=== PATIENT | male | born 1950 | race Caucasian/White ===

== ENCOUNTER 2016-11-10 12:26 | Inpatient (IN) | payer OTHER ==
[~2016-11-10] VITALS: Ht 175.3 cm; Wt 124.3 kg
--- NOTE | ~2016-11-10 | EKG ---
[address] [address] ELECTROCARDIOGRAM REPORT Name: KATIELOY Room #: 218-P ADM IN M.R.#: [id number] Admission: 11/10/16 Attend Phys: Arianna Dela Cruz MD Discharge: Date of : 48 Report #: [id number] THIS REPORT FOR: //name// [facility] ED Test Date: 2016-11-10 Test Time: 12:44:04 Pat Name: ELOY PARIKH Department: Room: 218 Gender: M Rn Plasma Center: JOSE ANTONIO : 1950 Requested By: Richard Charles Order Number: [id number] MD: Sergio Nevarez Measurements Intervals [place] Rate: 74 P: ID: QRS: 55 QRSD: 105 T: 26 QT: 354 QTc: 393 Interpretive Statements Atrial fibrillation Anteroseptal infarct, old No previous ECG available for comparison Electronically Signed On 11-11-2016 9:22:12 MATURITY CHECKER by Sergio Nevarez [email or web address] <ELECTRONICALLY SIGNED> By: Sergio Nevarez MD, [facility] 11/11/16 0922 1244 1244 Sergio Nevarez MD, FACC /EPI
--- NOTE | ~2016-11-10 | D ---
[facility] [place] [place] [address] DISCHARGE SUMMARY Name: ELOY PARIKH J Room #: 218-P [facility] IN ..#: [id number] Admission: 11/10/16 Attend Phys: Arianna Dela Cruz MD Discharge: 11/11/16 Date of : 48 Report #: [id number] THIS REPORT FOR: //name// CC: Arianna Dutta DATE OF SERVICE: 11/11/2016 AMA SUMMARY DISCHARGE DIAGNOSES: 1. Acute hypoxic respiratory failure. 2. Asthma exacerbation. 3. Acute on chronic diastolic congestive heart failure. 4. Noncompliance. 5. Type 2 diabetes. 6. Morbid obesity. 7. Hypertension. 8. Dyslipidemia. 9. Atrial fibrillation. 10. Obstructive sleep apnea. 11. Chronic kidney disease. CONSULTS: None. PROCEDURES: None. HOSPITAL COURSE: The patient is a 66-year-old male with a history of coronary artery disease, prior PCI, diastolic CHF, asthma, obstructive sleep apnea with nocturnal CPAP, presented to the ER secondary to shortness of breath. Please see details of admission dictated by myself on November 10. The patient was evaluated in the ER with a chest x-ray that showed marked cardiomegaly and pulmonary vascularities of upper limits of normal. EKG showed atrial fib with a rate of 74. His white count was 6. His influenza was negative. His INR was 3.1. His O2 sat was 92% on 4 liters. The patient was felt to have asthma exacerbation and diastolic CHF. His BNP was greater than 900. He was admitted and started on aggressive pulmonary toiletry, O2 support, DuoNebs, IV steroids, empiric antibiotics and IV Lasix. On the second day of hospital stay, the patient was still very dyspneic on exertion and was adamant about going home. He did not give us specifics as to why he wanted to go home but at that time he was still requiring inpatient hospital stay. He signed out against medical advice. I did discuss with him worsening of his respiratory status, potential severe morbidity and . We were able to arrange for outpatient oxygen and steroids. DISCHARGE DISPOSITION: To home. [facility] [address] [place] [address] DISCHARGE SUMMARY Name: KATIALVERTO Room #: 218-P [facility] IN [facility]#: [id number] Admission: 11/10/16 Attend Phys: Arianna Dela Cruz MD Discharge: 11/11/16 Date of : 48 Report #: [id number] DISCHARGE PHYSICAL EXAMINATION: VITAL SIGNS: Temperature 37.0, pulse 76, blood pressure 115/64, O2 sat 92% on 4 liters. GENERAL: He is awake, alert, with speech. CARDIOVASCULAR: Regular rate and rhythm. No murmurs. LUNGS: Clear to auscultation bilaterally. Coarse breath sounds with diffuse wheezing. ABDOMEN: Soft, no distention or tenderness. EXTREMITIES: No edema. NEUROLOGIC: Nonfocal. DISCHARGE MEDICATIONS: Prednisone taper, metformin 1000 mg b.i.d., Coreg 25 b.i.d., lisinopril 40 daily, Norvasc 5 daily, Coumadin 5 mg every other day alternating with 4 mg, aspirin 81 daily, Colace 100 b.i.d., Lasix 40 daily, MiraLax 17 grams daily, [place] p.r.n., glipizide 10 mg b.i.d. DIET: Diabetic diet. ACTIVITY: As tolerated. <ELECTRONICALLY SIGNED> By: Arianna Dela Cruz MD 12/19/16 1053 163 21 Arianna Dela Cruz MD /nt
--- NOTE | ~2016-11-10 | H ---
[facility] [place] [place] [address] HISTORY AND PHYSICAL Name: ELOY PARIKH Room #: 218-P [facility] IN M.R.#: [id number] Admission: 11/10/16 Attend Phys: Arianna Dela Cruz MD Discharge: 11/11/16 Date of : 48 Report #: [id number] THIS REPORT FOR: //name// CC: Arianna Dutta MD PRIMARY DOCTOR: Mohit Dutta MD CHIEF COMPLAINT: Shortness of breath and cough. HISTORY OF PRESENT ILLNESS: The patient is a 66-year-old male with a history of coronary artery disease, prior PCI with congestive heart failure on diuretic therapy, asthma, not on home O2, obstructive sleep apnea who wears nocturnal CPAP, presented to the ER secondary to shortness of breath. He indicates that his cough and shortness of breath has been present since September. He had received a prescription for Cheratussin from his primary care doctor, which helped significantly. In addition to that he has breathing treatments at home. He was using this to get by at home, but in the past few days ran out of his Cheratussin. He called his primary care doctor who encouraged him to go to the urgent care clinic. At the urgent care clinic, they could not see him until later on this evening; therefore, he came into the ER instead. Workup here in the ER revealed the patient is very bronchospastic consistent with an asthma exacerbation. His BNP is slightly elevated, but he denies any recent increase in weight, any changes in his chronic edema and any orthopnea. He does report being tight and wheezy consistent with his asthma. He has had chills and no overt fevers. He also reports that his breathing has gotten much better since he received breathing treatment. He also reports that his cough is better as well. PAST MEDICAL HISTORY: Coronary artery disease with prior PCI, question chronic CHF, type unknown. His last echocardiogram that is in our records was in 2014, at which time his ejection fraction was 65%, although he tells me he had a repeat echo done last month at Dr. Medina office, atrial fibrillation on chronic Coumadin therapy, hypertension, dyslipidemia, diabetes, asthma, obstructive sleep apnea with nocturnal CPAP, chronic pericardial effusion. PAST SURGICAL HISTORY: He has had cardiac stents, bilateral lower extremity vein surgery, tonsillectomy. He has had testosterone implants. SOCIAL HISTORY: Remote smoker. Drinks 2-4 alcoholic beverages daily. FAMILY HISTORY: Reviewed and noncontributory. REVIEW OF SYSTEMS: A 14-point review of systems was conducted, all negative except for above. [address] [address] HISTORY AND PHYSICAL Name: ELOY PARIKH Room #: 218-P [facility] IN ..#: [id number] Admission: 11/10/16 Attend Phys: Arianna Dela Cruz MD Discharge: 11/11/16 Date of : 48 Report #: [id number] CURRENT MEDICATIONS: Include Coumadin 4/5 daily, Norvasc 5 daily, aspirin 81 daily, Coreg 25 daily, Colace 100 b.i.d., Lasix 40 daily, MiraLax 17 grams daily p.r.n., [place] p.r.n., metformin 1000 mg b.i.d., Coreg 25 b.i.d., glipizide 10 b.i.d. ALLERGIES: None. PHYSICAL EXAMINATION: VITAL SIGNS: Temperature 97, pulse 78, blood pressure 125/67 and O2 sat 92% on 4 liters. GENERAL: He is awake, alert, answering questions appropriately, no acute respiratory distress. HEENT: Normocephalic, atraumatic. Pupils equal. NECK: Supple. CARDIOVASCULAR: Regular rate and rhythm. No murmurs. LUNGS: Clear to auscultation bilaterally. He has got diffuse coarseness, diffuse wheeze, decreased at bases. ABDOMEN: Soft, obese. No distention or tenderness. He has got a ventral hernia, is not incarcerated, soft and reducible. EXTREMITIES: A 1+ pitting edema bilaterally, also some scaling on his legs. LABS AND TESTING: Influenza A was negative. UA was negative for nitrites and leukocyte esterase. White count of 6, H and H of 13 and 40, platelets 157. INR 3.1. Sodium 142, potassium 4.4, BUN and creatinine . Chest x-ray showed marked cardiomegaly and pulmonary vascularities of upper limits are normal. No infiltrate or effusion. EKG showed atrial fibrillation with a rate of 74. His last creatinine was 1.1. ASSESSMENT AND PLAN: 1. Acute hypoxic respiratory failure, multifactorial including asthma exacerbation and maybe a degree of heart failure as well. We will treat underlying causes. Continue O2 support. 2. Asthma exacerbation. We will continue nebulizers, IV steroids, O2 support. Monitor on CC tele. We will also do empiric antibiotics with doxycycline. 4. Acute on chronic diastolic heart failure. We will give him a couple more doses of IV Lasix and then resume his oral Lasix. Monitor his volume status. We will try to get echocardiogram from Dr. Medina office. 5. Type 2 diabetes. We will continue home meds except his Glucophage and start sliding scale insulin. 6. Atrial fibrillation on chronic anticoagulation. We will continue the same and check daily INRs. 7. Obstructive sleep apnea. We will continue CPAP. 8. Hypertension. Continue the same. 9. Dyslipidemia. Again, continue the same. 10. Morbid obesity. The patient will benefit from outpatient followup in this [facility] [address] [place] [address] HISTORY AND PHYSICAL Name: KATIELOY Room #: 218-P [facility] IN .R.#: [id number] Admission: 11/10/16 Attend Phys: Arianna Dela Cruz MD Discharge: 11/11/16 Date of : 48 Report #: [id number] regards. 11. Deep venous thrombosis prophylaxis, on Coumadin. <ELECTRONICALLY SIGNED> By: Arianna Dela Cruz MD 11/22/162009 1730 1826 Arianna Dela Cruz MD /nt
[~2016-11-10 12:26] MED LIST: ASPIR 8181 MG PO; ATORVASTATIN CA40 MG PO; COLACE100 MG PO; COREG25 MG PO; COUMADIN 4 MG TA4 M1 PO; COUMADIN 5 MG TA5 M1 PO; GLUCOTROL5 MG PO; HYDROCODONE-AP1 EAC6 PO; LASIX 40 MG TAB40 M2 PO; LISINOPRIL20 MG PO; METFORMIN HCL500 MG PO; MIRALAX17 GM PO; NORVASC5 MG PO
[2016-11-10 12:29] VITALS: BP 150/76
[2016-11-10] MEDS ORDERED: GLIPIZIDE 10 MG10 MG PO (13:35)
[2016-11-10 13:53] LABS: HEMATOCRIT 40.8 % (42.0-52.0); HEMOGLOBIN 13.2 gm/dL (14.0-18.0); MCH 27.8 pg (26.0-34.0); MCHC 32.4 % (28.0-37.0); MCV 85.9 fL (80.0-100.0); PLATELET COUNT 157 thou/uL (150-400); RBC 4.75 mil/uL (4.50-6.00); RDW 14.9 % (10.5-14.5); WBC 6.6 thou/uL (4.0-11.0)
[2016-11-10 13:57] LABS: ANION GAP 8 mmol/L (7-16); BUN 30 mg/dL (7-18); CALCIUM 8.8 mg/dL (8.5-10.1); CHLORIDE 103 mmol/L (98-107); CO2 31 mmol/L (21-32); CREATININE 1.3 mg/dL (0.6-1.3); GLUCOSE 167 mg/dL (70-99); MANUAL DIFF YES; POTASSIUM 4.4 mmol/L (3.5-5.1); SODIUM 142 mmol/L (136-145)
[2016-11-10 14:09] LABS: ALBUMIN 3.5 g/dL (3.4-5.0); ALKALINE PHOSPHATASE 87 U/L (46-116); APTT 38.2 Seconds (24.5-32.8); MAGNESIUM 1.5 mg/dL (1.8-2.4); NT-PRO BRAIN NAT PEPTIDE 953 pg/mL (<300); PROTIME 32.3 Seconds (9.3-11.4); SGOT 17 U/L (15-37); SGPT 26 U/L (30-65); TOTAL BILIRUBIN 0.6 mg/dL (<0.1-1.0); TOTAL PROTEIN 6.6 g/dL (6.4-8.2); TROPONIN-I < 0.04 ng/mL (<0.04-0.07)
[2016-11-10 14:11] LABS: INR 3.1
[2016-11-10 14:17] LABS: ABSOLUTE NEUTROPHILS 4.3 thou/uL (1.4-8.2); ANISOCYTOSIS SLIGHT; TOTAL CELL COUNT 100
[2016-11-10 14:25] LABS: URINE BILIRUBIN NEGATIVE (Negative); URINE BLOOD TRACE (Negative); URINE COLOR YELLOW; URINE GLUCOSE-RANDOM* NEGATIVE (Negative); URINE KETONES NEGATIVE (Negative); URINE LEUKOCYTES-REFLEX NEGATIVE (Negative); URINE PROTEIN (DIPSTICK) 2+ (Negative); URINE SPECIFIC GRAVITY 1.025 (1.003-1.035); URINE UROBILINOGEN 0.2 E.U./dl (0.2-1.0)
[2016-11-10 14:33] LABS: HYALINE CASTS 4-10 Moderate /LPF (None Seen)
[2016-11-10 14:34] LABS: CRYSTALS None Seen /LPF (None Seen); SQUAMOUS 0-3 Few /LPF (0-3); URINE RBC 3-10 Few /HPF (0-2); URINE WBC-REFLEX None Seen /HPF (0-5)
[2016-11-10 19:27] VITALS: BP 131/76
[2016-11-10 20:00] VITALS: BP 113/44
[2016-11-10 23:28] VITALS: BP 162/77
[2016-11-11 01:35] LABS: ABSOLUTE NEUTROPHILS 4.8 thou/uL (1.4-8.2); BASOPHILS 0.2 % (0.0-2.0); EOSINOPHILS 0.2 % (0.0-3.0); HEMATOCRIT 43.6 % (42.0-52.0); HEMOGLOBIN 13.7 gm/dL (14.0-18.0); LYMPHOCYTES 14.8 % (24.0-44.0); MCH 27.7 pg (26.0-34.0); MCHC 31.5 % (28.0-37.0); MCV 87.9 fL (80.0-100.0); MONOCYTES 1.6 % (1.0-8.0); PLATELET COUNT 163 thou/uL (150-400); POLYS 83.2 % (36.0-66.0); RBC 4.96 mil/uL (4.50-6.00); RDW 14.6 % (10.5-14.5); WBC 5.7 thou/uL (4.0-11.0)
[2016-11-11 01:37] LABS: MANUAL DIFF NO
[2016-11-11 01:43] LABS: CREATININE 1.2 mg/dL (0.6-1.3); POTASSIUM 4.8 mmol/L (3.5-5.1)
[2016-11-11 02:11] LABS: INR 2.8; PROTIME 28.9 Seconds (9.3-11.4)
[2016-11-11 07:47] VITALS: BP 143/70
[2016-11-11 11:20] VITALS: BP 115/64
[2016-11-11] MEDS ORDERED: PREDNISONE 10 M10 MG PO (14:23)
== END 2016-11-11 15:14 | disposition home or self-care (01) | DRG 291 ==
LOC: ER 12:26 → 2N 17:02 → EROBS 17:02 → 2N 19:31
PROVIDERS: Emergency Medicine; Family Medicine
DX: I50.33 Acute on chronic diastolic (congestive) heart failure (principal); J96.01 Acute respiratory failure with hypoxia; J45.901 Unspecified asthma with (acute) exacerbation; I31.3 Pericardial effusion (noninflammatory); Z68.41 Body mass index [BMI] 40.0-44.9, adult; I11.0 Hypertensive heart disease with heart failure; I25.10 Atherosclerotic heart disease of native coronary artery without angina pectoris; I48.2 Chronic atrial fibrillation; E83.42 Hypomagnesemia; E11.9 Type 2 diabetes mellitus without complications; G47.33 Obstructive sleep apnea (adult) (pediatric); E78.5 Hyperlipidemia, unspecified; E66.01 Morbid (severe) obesity due to excess calories; Z60.2 Problems related to living alone; Z91.19 Patient's noncompliance with other medical treatment and regimen; Z87.891 Personal history of nicotine dependence; Z79.01 Long term (current) use of anticoagulants
CPT/HCPCS: 10081

== ENCOUNTER 2017-06-14 11:04 | Emergency (ER) | payer OTHER ==
[~2017-06-14] VITALS: Ht 177.8 cm; Wt 117.9 kg
--- NOTE | ~2017-06-14 | EKG ---
[place] [address] [facility] [place] [address] ELECTROCARDIOGRAM REPORT Name: ELOY PARIKH Room #: DEP [facility]#: [id number] Admission: 06/14/17 Attend Phys: Discharge: 06/14/17 Date of : 48 Report #: [id number] THIS REPORT FOR: //name// [facility] ED Test Date: 2017-06-14 Test Time: 12:00:48 Pat Name: ELOY PARIKH Department: Room: Gender: M Medical Office Assistant Instructor: Shereen MORALEZ : 1950 Requested By: Richard Charles Order Number: [id number] MD: Sergio Nevarez Measurements Intervals [place] Rate: 69 P: [place]: QRS: 60 QRSD: 102 T: 36 QT: 379 QTc: 406 Interpretive Statements Atrial fibrillation Borderline low voltage, extremity leads Baseline wander in lead(s) I,III,aVL,V1 Compared to ECG 11/10/2016 12:44:04 Septal Q waves are no longer present Electronically Signed On 06-15-2017 7:54:57 CDT by Sergio Nevarez [email or web address] <ELECTRONICALLY SIGNED> By: Sergio Nevarez MD, [facility] 06/15/17 0754 1200 1200 Sergio Nevarez MD, [facility] /EPI
[~2017-06-14 11:04] MED LIST changes: +GLIPIZIDE 10 MG10 MG PO; +PREDNISONE 10 M10 MG PO
[2017-06-14 11:47] LABS: URINE BLOOD NEGATIVE (Negative); URINE COLOR YELLOW; URINE GLUCOSE-RANDOM* NEGATIVE (Negative); URINE KETONES TRACE (Negative); URINE NITRITE NEGATIVE (Negative); URINE PROTEIN (DIPSTICK) 2+ (Negative); URINE SPECIFIC GRAVITY 1.025 (1.003-1.035); URINE UROBILINOGEN 0.2 E.U./dl (0.2-1.0)
[2017-06-14 11:51] LABS: ICTOTEST (BILI CONFIRMATORY) Negative (Negative); URINE BILIRUBIN NEGATIVE (Negative)
[2017-06-14 11:54] LABS: AMP/METHAMP Negative (Negative); BARBITURATES Negative (Negative); BENZODIAZEPINES Negative (Negative); COCAINE Negative (Negative); METHADONE Negative (Negative); OPIATES Negative (Negative); PCP Negative (Negative); THC Negative (Negative)
[2017-06-14 12:07] LABS: ABSOLUTE NEUTROPHILS 4.2 thou/uL (1.4-8.2); BASOPHILS 0.4 % (0.0-2.0); EOSINOPHILS 7.2 % (0.0-3.0); HEMATOCRIT 36.7 % (42.0-52.0); HEMOGLOBIN 11.7 gm/dL (14.0-18.0); LYMPHOCYTES 19.1 % (24.0-44.0); MCH 26.5 pg (26.0-34.0); MCHC 31.8 g/dL (28.0-37.0); MCV 83.3 fL (80.0-100.0); MONOCYTES 9.5 % (1.0-8.0); PLATELET COUNT 175 thou/uL (150-400); POLYS 63.8 % (36.0-66.0); RBC 4.41 mil/uL (4.50-6.00); RDW 15.9 % (10.5-14.5); WBC 6.5 thou/uL (4.0-11.0)
[2017-06-14 12:07] LABS: FINE GRANULAR CASTS 0-3 Few /LPF (None Seen); SQUAMOUS None Seen /LPF (0-3)
[2017-06-14 12:08] LABS: BACTERIA 1-9 Few /HPF (None Seen); CRYSTALS None Seen /LPF (None Seen); URINE RBC 0-2 Rare /HPF (0-2); URINE WBC 0-5 Rare /HPF (0-5)
[2017-06-14 12:12] LABS: MANUAL DIFF NO
[2017-06-14 12:17] LABS: ANION GAP 7 mmol/L (7-16); BUN 13 mg/dL (7-18); CALCIUM 9.2 mg/dL (8.5-10.1); CHLORIDE 103 mmol/L (98-107); CO2 33 mmol/L (21-32); CREATININE 0.9 mg/dL (0.7-1.3); GLUCOSE 128 mg/dL (74-106); POTASSIUM 4.2 mmol/L (3.5-5.1); SODIUM 143 mmol/L (136-145)
[2017-06-14 12:24] LABS: APTT 31.8 Seconds (24.5-32.8); INR 2.2; PROTIME 22.1 Seconds (9.3-11.4)
[2017-06-14 12:26] LABS: ALBUMIN 3.6 g/dL (3.4-5.0); ALKALINE PHOSPHATASE 100 U/L (46-116); MAGNESIUM 1.4 mg/dL (1.8-2.4); SGOT 11 U/L (15-37); SGPT 21 U/L (30-65); TOTAL BILIRUBIN 0.5 mg/dL (<0.1-1.0); TOTAL PROTEIN 6.6 g/dL (6.4-8.2); TROPONIN-I < 0.04 ng/mL (<0.04-0.07)
== END 2017-06-14 13:00 | disposition home or self-care (01) ==
LOC: ER 11:04
PROVIDERS: Emergency Medicine
DX: H54.61 Unqualified visual loss, right eye, normal vision left eye (principal); I48.2 Chronic atrial fibrillation; I11.0 Hypertensive heart disease with heart failure; I50.9 Heart failure, unspecified; E11.9 Type 2 diabetes mellitus without complications; E78.00 Pure hypercholesterolemia, unspecified; J45.909 Unspecified asthma, uncomplicated; E11.51 Type 2 diabetes mellitus with diabetic peripheral angiopathy without gangrene; E11.39 Type 2 diabetes mellitus with other diabetic ophthalmic complication; H40.9 Unspecified glaucoma; Z95.5 Presence of coronary angioplasty implant and graft; Z87.891 Personal history of nicotine dependence

== ENCOUNTER 2018-09-24 10:44 | Inpatient (IN) | payer OTHER ==
[~2018-09-24] VITALS: Ht 180.3 cm; Wt 125.7 kg
--- NOTE | ~2018-09-24 | HC ---
[facility] [place] [place] [address] CONSULTATION Name: ELOY PARIKH Room #: 361-P [facility] IN M.R.#: [id number] Admission: 09/24/18 Attend Phys: Sae Mustafa MD Discharge: 09/25/18 Date of : 48 Report #: [id number] THIS REPORT FOR: //name// CC: FAM unknown Sae Mustafa DATE OF SERVICE: 09/24/2018 TYPE OF REPORT: Pulmonary consultation. REFERRING PHYSICIAN: Sae Mustafa M.D. HISTORY OF PRESENT ILLNESS: The patient is a 68-year-old white male with multiple medical problems, presents to Emergency Room with increasing dyspnea. A Pulmonary consultation was requested. The patient has known coronary artery disease. He is followed by Dr. Medina in the past. For the past few days, it is noted that his dyspnea has been worsening. On the day of admission, he states that his saturation was in the low 70%-60%. Chest x-ray on admission showed increased cardiac silhouette suggestive of pericardial effusion. Lung volumes are decreased. The patient otherwise denies any fever, night sweats or chills. He does have a history of asthma. He has never smoked. He also has a history of sleep apnea and is on CPAP at home. PAST MEDICAL HISTORY: Notable for coronary artery disease, past history of pericardial effusion, status post stent placement in 1999, history of heart failure, asthma, YAKOV and CPAP at night, diabetes mellitus type 2, atrial fibrillation, hypertension, hyperlipidemia, peripheral artery disease, glaucoma and obesity. PAST SURGICAL HISTORY: Notable for tonsillectomy at 4 years of age. ALLERGIES: None to medications. HOME MEDICATIONS: List reviewed, this include Zestril, Coumadin, Glucophage, Coreg, Norvasc, aspirin, Lasix and Glucotrol. FAMILY HISTORY: Noncontributory. SOCIAL HISTORY: The patient states that he has never smoked. He drinks socially. [facility] [address] [place] [address] CONSULTATION Name: ELOY PARIKH J Room #: 361-P [facility]#: [id number] Admission: 09/24/18 Attend Phys: Sae Mustafa MD Discharge: 09/25/18 Date of : 48 Report #: [id number] REVIEW OF SYSTEMS: As mentioned above, otherwise 10-point system review negative. PHYSICAL EXAMINATION: GENERAL: He is awake and alert, in mild distress due to dyspnea. VITAL SIGNS: Temperature is 98 degrees Fahrenheit, pulse is 110, respiratory rate is 20, blood pressure is 136/79 mmHg and saturation 92%. HEENT: Normocephalic and atraumatic. NECK: Supple, without any lymphadenopathy or thyromegaly. CHEST: Breath sounds are decreased. No obvious wheezes or rales. CARDIOVASCULAR: Heart sounds are distant. No obvious murmurs or gallop. Pulses are 2+/4+ bilaterally. ABDOMEN: Obese, soft and nontender. No organomegaly or masses felt. GENITOURINARY: Deferred. RECTAL: Deferred. EXTREMITIES: Trace edema. No cyanosis or clubbing. NEUROLOGICAL: Grossly intact. RADIOLOGICAL DATA: Portable chest x-ray shows enlarged cardiac silhouette or cardiomegaly, no obvious infiltrates seen. LABORATORY DATA: Influenza A and B swab is negative. Electrolytes are normal. Creatinine is 1.1. Liver enzymes are mildly abnormal. WBC 5200 and hemoglobin 12.7. No evidence of significant bandemia. Eosinophil count is mildly elevated. Arterial blood gas revealed pH 7.33, pCO2 of 60 and pO2 of 72 on 2 liters of O2. IMPRESSION: 1. Gyjoq-ok-czmernj hypercapnic hypoxic respiratory failure in this 68-year-old white male, likely due to heart failure. Chest x-ray also suggests recurrent pericardial effusion. 2. History of asthma without obvious exacerbation. 3. Chronic respiratory failure, he is on supplemental O2 at home. 4. Obstructive sleep apnea, on home continuous positive airway pressure. With chronic hypercapnia, the patient likely has a component of obesity hypoventilation syndrome. 5. Obesity. 6. Coronary artery disease with prior stent with past history of pericardial effusion. Please see comments above. Cardiology has been consulted. Echocardiogram has been ordered. RECOMMENDATIONS: Continue bronchodilators, continue home CPAP, wean O2 for saturation 90%. We will await Cardiology's input. Additional recommendation will be, DVT and GI prophylaxis will be indicated. [address] [address] CONSULTATION Name: ELOY PARIKH Room #: 361-P DIS IN M.R.#: [id number] Admission: 09/24/18 Attend Phys: Sae Mustafa MD Discharge: 09/25/18 Date of : 48 Report #: [id number] Thank you for this consultation. <ELECTRONICALLY SIGNED> By: Justin Gauthier MD 09/26/18 1915 0856 1009 Justin Gauthier MD /nt
--- NOTE | ~2018-09-24 | HC ---
[facility] [place] [place] [address] CONSULTATION Name: ELOY PARIKH Room #: 361-P ADM IN M.R.#: [id number] Admission: 09/24/18 Attend Phys: Sae Mustafa MD Discharge: Date of : 48 Report #: [id number] THIS REPORT FOR: //name// CC: FAM unknown Sae Mustafa DATE OF SERVICE: 09/24/2018 Inpatient Consultation PRIMARY CARE PHYSICIAN: Mohit Dutta MD MARKETING AND OUTREACH COORDINATOR: Andrade Medina MD, [facility] HISTORY OF PRESENT ILLNESS: The patient is a 68-year-old male, known to our practice with a history of heart disease. He presents with several days of increasing shortness of breath. He has oxygen requiring COPD, usually the 2 L range is what he sets his home O2, but his oxygen level was in the low 50s and he turned it up to 4-5 L. Normally, his saturations are in the mid 80s on 2 L and he is comfortable. He has not really had any increasing chest pain with pressure with physical activity. He denies palpitations. He has known chronic a-fib. He is anticoagulated with warfarin. He denies falls, GI or bleeding. He has history of pericardial effusion and a prior pericardial window and there was noted cardiomegaly on his chest x-ray. He himself though denies increasing abdominal girth or swelling. PAST MEDICAL HISTORY: Significant for the following: Status post pericardial window, coronary artery disease, atrial fibrillation in 2014, subxiphoid pericardiotomy per Dr. Chiu, history of normal LV systolic function, coronary artery disease, status post PCI in approximately 2004 to his LAD, has a chronically occluded right coronary artery. PAST SURGICAL HISTORY: Pericardial window in 2014, PCI in 2004, tonsillectomy, testosterone implant. SOCIAL HISTORY: He is a tobacco user prior. FAMILY HISTORY: Noncontributory. REVIEW OF SYSTEMS: GASTROINTESTINAL: No nausea or vomiting. [facility] [address] [place] [address] CONSULTATION Name: ELOY PARIKH Room #: 361-P [facility] IN [facility].#: [id number] Admission: 09/24/18 Attend Phys: Sae Mustafa MD Discharge: Date of : 48 Report #: [id number] CARDIOVASCULAR: Positive chest pain, positive dyspnea, positive PND. NEUROLOGIC: Denies headaches, blurry vision or slurred speech. GENITOURINARY: No dysuria or hematuria. SKIN: No rashes. GENERAL: No fevers or chills. PULMONARY: Positive shortness of breath, positive cough, positive dyspnea with exertion, positive PND. HOME MEDICATIONS: Include Lasix 40 mg every other day, warfarin 5 mg daily, aspirin 81 mg, amlodipine 5 mg daily, metformin 1 g b.i.d., lisinopril 40 mg p.o. b.i.d., Coreg 25 mg p.o. b.i.d., albuterol, Atrovent, glipizide 10 mg daily, insulin. PHYSICAL EXAMINATION: VITAL SIGNS: Blood pressure is 136/79, pulse is 115 in atrial fibrillation. Temperature is 36.7, respiratory rate is 20, O2 sat on 5 L is 92%. GENERAL: Morbidly obese elderly man who is alert, in no apparent distress. He is dyspneic with conversation. HEENT: Unremarkable. NECK: Supple. No jugular venous distention. CARDIOVASCULAR: Regular. I cannot hear murmur. LUNGS: Diminished breath sounds. There are no rales. ABDOMEN: Protuberant, nontender, nondistended. There is no fluid wave. EXTREMITIES: 1-2+ edema, pretibial. NEUROLOGIC: There are no focal deficits. LABORATORY DATA: Electrocardiogram demonstrates atrial fibrillation. There is poor R-wave progression, nonspecific T-wave flattening, but as dynamic ST-T wave abnormalities. Hemoglobin is 12.7, platelet count is 199,000. INR is 3.8. Blood gas: pH 7.3, pCO2 60, pO2 72 on nasal cannula 2 L. Chest x-ray shows cardiomegaly, minimal infiltrates. Troponin is 0.06. BNP is 415. IMPRESSION: 1. Respiratory insufficiency. I think this is multifactorial. He has underlying sleep apnea, morbid obesity and underlying chronic obstructive pulmonary disease. I would continue with O2 per nasal cannula and his usual CPAP dosing at nighttime. I would treat him aggressively with nebulizers and pulmonary toilet. 2. Chronic atrial fibrillation. This is rate controlled. We will continue with current medical therapy. He is fully anticoagulated. 3. Coronary artery disease. I would like to continue with medical treatment approach. His symptoms really did not seem to be related to angina. 4. Pericardial effusion. He has had a prior window, but there is evidence of [facility] [address] [place] [address] CONSULTATION Name: ELOY PARIKH Room #: 361-P [facility] IN M.R.#: [id number] Admission: 09/24/18 Attend Phys: Sae Mustafa MD Discharge: Date of : 48 Report #: [id number] cardiomegaly x-ray, so I will check a limited echocardiogram to reassess for effusion. 5. Hypertension, stable. By: [id number] Armando Cleary MD, FACC /nt
--- NOTE | ~2018-09-24 | EKG ---
[address] [place] [address] ELECTROCARDIOGRAM REPORT Name: ELOY PARIKH Room #: 170-11 ADM IN M.R.#: [id number] Admission: 09/24/18 Attend Phys: Sae Mustafa MD Discharge: Date of : 48 Report #: [id number] THIS REPORT FOR: //name// [facility] ED Test Date: 2018-09-24 Test Time: 11:16:47 Pat Name: ELOY PARIKH Department: Room: 170 Gender: M Cloth Framer: CHARLENE : 1950 Requested By: Charisma Suarez Order Number: [id number] MD: Sergio Nevarez Measurements Intervals [place] Rate: 113 P: 38 IL: 145 QRS: 75 QRSD: 104 T: QT: 303 QTc: 416 Interpretive Statements Atrial fibrillation with a rapid ventricular response Multiform ventricular premature complexes Anteroseptal infarct, old Nonspecific T abnormalities Baseline wander in lead(s) V3,V4 Compared to ECG 06/14/2017 12:00:48 Ventricular premature complex(es) now present Septal Q waves are more prominent Electronically Signed On 09-24-2018 16:43:26 ANCILLARY SPECIALIST by Sergio Nevarez [email or web address] <ELECTRONICALLY SIGNED> By: Sergio Nevarez MD, FACC 09/24/18 1643 1116 1116 Sergio Nevarez MD, FACC /EPI
[2018-09-24 11:25] LABS: BE(vivo) 3.7 mmol/L (-2 to +3); HCO3 31.3 mmol/L (22.0-26.0); PCO2 60.5 mmHg (35.0-45.0); PO2 72.5 mmHg (80.0-100.0); pH 7.331 (7.360-7.450); sO2 93.2 % (92.0-98.0)
[2018-09-24 11:41] LABS: ABSOLUTE NEUTROPHILS 3.7 thou/uL (1.4-8.2); BASOPHILS 0.7 % (0.0-2.0); EOSINOPHILS 4.5 % (0.0-3.0); HEMATOCRIT 40.7 % (42.0-52.0); HEMOGLOBIN 12.7 gm/dL (14.0-18.0); LYMPHOCYTES 18.8 % (24.0-44.0); MCHC 31.2 g/dL (28.0-37.0); MCV 89.7 fL (80.0-100.0); MONOCYTES 10.8 % (1.0-8.0); PLATELET COUNT 199 thou/uL (150-400); POLYS 65.2 % (36.0-66.0); RBC 4.54 mil/uL (4.50-6.00); RDW 16.2 % (10.5-14.5); WBC 5.6 thou/uL (4.0-11.0)
[2018-09-24 11:48] LABS: INR 3.8; PROTIME 39.7 Seconds (9.3-11.4)
[2018-09-24 11:52] LABS: ANION GAP 4 mmol/L (7-16); BUN 20 mg/dL (7-18); CALCIUM 9.4 mg/dL (8.5-10.1); CHLORIDE 102 mmol/L (98-107); CO2 36 mmol/L (21-32); CREATININE 1.1 mg/dL (0.7-1.3); GLUCOSE 201 mg/dL (74-106); POTASSIUM 4.4 mmol/L (3.5-5.1); SODIUM 142 mmol/L (136-145)
[2018-09-24 11:58] LABS: ALBUMIN 3.7 g/dL (3.4-5.0); SGOT 17 U/L (15-37); SGPT 27 U/L (30-65); TOTAL BILIRUBIN 1.1 mg/dL (<0.1-1.0); TROPONIN-I <0.06 ng/mL (<0.06)
[2018-09-24 15:51] VITALS: BP 158/87
[2018-09-24 17:46] VITALS: BP 136/79
[2018-09-24 20:00] VITALS: BP 149/85
[2018-09-24 23:56] VITALS: BP 140/80
[2018-09-25 05:15] VITALS: BP 171/99
[2018-09-25 05:56] LABS: INR 3.2; PROTIME 33.2 Seconds (9.3-11.4)
[2018-09-25 05:59] LABS: CALCIUM 9.1 mg/dL (8.5-10.1); CREATININE 1.1 mg/dL (0.7-1.3); POTASSIUM 5.1 mmol/L (3.5-5.1)
[2018-09-25 07:50] VITALS: BP 138/82
[2018-09-25 08:06] VITALS: BP 138/82
== END 2018-09-25 11:02 | disposition left against medical advice (07) | DRG 189 ==
LOC: ER 10:44 → 3W 12:12 → EROBS 12:12 → 3W 17:02 → ENTRNSPT 09-25 10:48 → EDTRNSPTSTS 09-25 10:50 → 3W 09-25 11:02
PROVIDERS: Nurse Practitioner Family
DX: J96.21 Acute and chronic respiratory failure with hypoxia (principal); I50.32 Chronic diastolic (congestive) heart failure; J44.1 Chronic obstructive pulmonary disease with (acute) exacerbation; I31.3 Pericardial effusion (noninflammatory); E11.9 Type 2 diabetes mellitus without complications; E78.5 Hyperlipidemia, unspecified; I11.0 Hypertensive heart disease with heart failure; J96.22 Acute and chronic respiratory failure with hypercapnia; I48.2 Chronic atrial fibrillation; I25.10 Atherosclerotic heart disease of native coronary artery without angina pectoris; H40.9 Unspecified glaucoma; E66.01 Morbid (severe) obesity due to excess calories; G47.33 Obstructive sleep apnea (adult) (pediatric); E11.51 Type 2 diabetes mellitus with diabetic peripheral angiopathy without gangrene; Z53.21 Procedure and treatment not carried out due to patient leaving prior to being seen by health care provider; I25.2 Old myocardial infarction; Z87.891 Personal history of nicotine dependence; Z68.38 Body mass index [BMI] 38.0-38.9, adult; Z95.5 Presence of coronary angioplasty implant and graft; Z79.01 Long term (current) use of anticoagulants; Z79.84 Long term (current) use of oral hypoglycemic drugs; Z79.899 Other long term (current) drug therapy
CPT/HCPCS: 10879

== ENCOUNTER 2018-10-11 17:48 | Inpatient (IN) | payer OTHER ==
[~2018-10-11] VITALS: Ht 180.3 cm; Wt 124.8 kg
[2018-10-11] VITALS (15 sets, daily range): BP systolic 54–113; BP diastolic 25–79
--- NOTE | ~2018-10-11 | HC ---
[facility] [address] [place] [address] CONSULTATION Name: ELOY PARIKH Room #: 430-P [facility] IN M.R.#: [id number] Admission: 10/11/18 Attend Phys: Westley Saucedo MD Discharge: Date of : 48 Report #: [id number] THIS REPORT FOR: //name// CC: FAM unknown Westley Saucedo DATE OF SERVICE: 10/17/2018 HISTORY OF PRESENT ILLNESS: The patient is a 68-year-old white male who was admitted with coronary artery disease and chronic atrial fibrillation, was noted to have acute hypoxic encephalopathy and respiratory failure. He had cardiogenic shock secondary to pericardial tamponade ended up undergoing pericardiocentesis. He has been stabilizing medically and we are seeing him in rehabilitation medicine consultation. PAST MEDICAL HISTORY: Atrial fibrillation, asthma, CPAP at night, hypertension, hyperlipidemia, CHF, peripheral vascular disease. ALLERGIES: No known drug allergies. MEDICATIONS: Please see the full medication listing. This includes vitamins, herbals, and supplements. HABITS: Former smoker, quit greater than a year ago. History of some alcohol usage. REVIEW OF SYSTEMS: No current complaints of chest pain, shortness of breath or abdominal discomfort. No focal extremity pain complaints. SOCIAL HISTORY: Lives in a house alone, 12 steps in, occasional cane usage. House apparently has mold and in need of repairs and there is concern by family regarding him returning home. PHYSICAL EXAMINATION: GENERAL: This is a 68-year-old obese white male in no obvious distress. VITAL SIGNS: Last recorded temperature 98.3, pulse 63, respirations 17, and blood pressure 140/89. Pleasant, he is currently on 5 liters nasal cannula and using 6 with exercise. ____ indicated he only used 2 at home. NEUROLOGIC: He is alert, will follow basic 1 step commands. Facies appeared symmetric. He has functional range of motion of both upper extremities with strength grade 3+/5 to 4-/5. DTRs are trace to 1. Lower extremities, no focal calf swelling, functional range of motion with strength grade 3+ to 4-/5. DTRs are decreased. He is doing better now with more of a min assist sit to stand and short distance ambulation. He does tend to desaturate needing the 6 liters as noted above. [facility] [address] [place] [address] CONSULTATION Name: KATIALVERTO Room #: 430-P [facility] IN ..#: [id number] Admission: 10/11/18 Attend Phys: Westley Saucedo MD Discharge: Date of : 48 Report #: [id number] ASSESSMENT: This is a 68-year-old white male with the following problems: 1. Cardiogenic shock secondary to pericardial tamponade, status post pericardiocentesis. 2. Acute hypoxic encephalopathy, which appears improved/resolved. 3. Acute on chronic respiratory failure, which is improved, although still on increased O2 premorbidly. 4. Coronary artery disease. 5. Chronic atrial fibrillation. 6. Chronic obstructive pulmonary disease. 7. Renal insufficiency. PLAN: Home situation is a concern as noted above. Note that skilled facility options are being checked in too. I am in agreement with this plan. By: [id number] Murali Horton MD /nt
[2018-10-11 18:07] LABS: ABSOLUTE NEUTROPHILS 4.6 thou/uL (1.4-8.2); BASOPHILS 0.3 % (0.0-2.0); HEMOGLOBIN 12.6 gm/dL (14.0-18.0); LYMPHOCYTES 17.3 % (24.0-44.0); MCH 28.3 pg (26.0-34.0); MCHC 31.4 g/dL (28.0-37.0); MONOCYTES 8.5 % (1.0-8.0); PLATELET COUNT 167 thou/uL (150-400); POLYS 73.9 % (36.0-66.0); RBC 4.44 mil/uL (4.50-6.00); RDW 16.7 % (10.5-14.5); WBC 6.2 thou/uL (4.0-11.0)
[2018-10-11 18:14] LABS: CALCIUM 8.8 mg/dL (8.5-10.1); CREATININE 2.6 mg/dL (0.7-1.3); POTASSIUM 5.4 mmol/L (3.5-5.1)
[2018-10-11 18:22] LABS: ALBUMIN 3.6 g/dL (3.4-5.0); MAGNESIUM 1.7 mg/dL (1.8-2.4); TOTAL BILIRUBIN 0.7 mg/dL (<0.1-1.0); TOTAL PROTEIN 6.4 g/dL (6.4-8.2); TROPONIN-I 0.25 ng/mL (<0.06)
[2018-10-11 18:42] LABS: HCO3 22.9 mmol/L (22.0-26.0); PO2 134.7 mmHg (80.0-100.0); sO2 97.4 % (92.0-98.0)
[2018-10-11 18:43] LABS: PCO2 77.2 mmHg (35.0-45.0); pH 7.091 (7.360-7.450)
[2018-10-11 19:15] LABS: PROTIME 68.8 Seconds (9.3-11.4)
[2018-10-11 19:19] LABS: APTT 40.5 Seconds (24.5-32.8); INR 6.7
--- NOTE | 2018-10-11 21:17 | NUR ---
CONSULTED TO PLACE A CENTRAL LINE FOR A PATIENT ADMITTING TO ICU WITH SEPSIS. ORDER AND CONSENT NOTED. CONSENT OBTAINED BY PALLIATIVE CARE NURSE.INR NOTED TO BE ELEVATED. RIGHT JUGULAR LARGE AND WIDLEY PATENT. A #6F TRIPLE LUMEN JACC CENTRAL LINE WAS PLACED WITHOUT DIFFICULTY. LINE 25CM ADVANCED TO 19CM WITHOUT RESISTANCE. A STAT CHEST XRAY WAS ORDERED TO CONFIRM LINE PLACEMENT AND LINE SECURED. GAUZE PLACED AT SITE DUE TO ELEVATED INR. PALLIATIVE CARE NURSE INFORMED DRESSING MAY NEED TO BE CHANGED DURING THE PM SHIFT IF BLEEDING NOTED.
[2018-10-11 21:33] LABS: BE(vivo) -6.5 mmol/L (-2 to +3); HCO3 24.6 mmol/L (22.0-26.0); PO2 85.2 mmHg (80.0-100.0); sO2 92.1 % (92.0-98.0)
[2018-10-11 21:34] LABS: PCO2 79.5 mmHg (35.0-45.0); pH 7.108 (7.360-7.450)
--- NOTE | 2018-10-11 22:56 | NUR ---
PATIENT ARRIVED FROM ER AROUND 2019 TONIGHT WITH LEVOPHED GTT AND LASIX GTT INFUSING. PT DROWSY BUT AROUSE WITH VERBAL STIMULI AND FOLLOW SIMPLE COMMANDS. PT ON THE BIPAP. CENTRAL LINE DONE BY IV TEAM AND ECHO DONE TONIGHT. ABG RESULTS NOTIFIED TO KAELA SOTELO. 2029 STOP LASIX GTT. AROUND [address] QUEEN FOR [facility] TRANSFUSION, LAB AND IVF. 2214 SPOKE WITH PT'S DPOA REGARDING ORDER. PT'S DPOA SAID NO BLOOD PRODUCTS BECAUSE PT IS [facility]'S WITNESSES. DR QUEEN AWARE.
[2018-10-12] VITALS (87 sets, daily range): BP systolic 84–156; BP diastolic 44–93
--- NOTE | 2018-10-12 04:06 | NUR ---
PATIENT WOKE UP CONFUSED, PULLING IV AND ANXIOUS. REORIENTED TO PLACE AND SITUATION. PT ABLE TO CALM DOWN.
[2018-10-12 06:25] LABS: HEMATOCRIT 39.5 % (42.0-52.0); HEMOGLOBIN 12.2 gm/dL (14.0-18.0); MCH 27.8 pg (26.0-34.0); MCHC 30.9 g/dL (28.0-37.0); MCV 89.9 fL (80.0-100.0); RBC 4.4 mil/uL (4.50-6.00); RDW 16.9 % (10.5-14.5); WBC 6.6 thou/uL (4.0-11.0)
[2018-10-12 06:35] LABS: PROTIME 25.7 Seconds (9.3-11.4)
[2018-10-12 06:39] LABS: INR 2.5
[2018-10-12 06:40] LABS: CALCIUM 8.1 mg/dL (8.5-10.1); CREATININE 2.4 mg/dL (0.7-1.3); MAGNESIUM 1.7 mg/dL (1.8-2.4); POTASSIUM 5.6 mmol/L (3.5-5.1); TROPONIN-I 0.58 ng/mL (<0.06)
[2018-10-12 10:39] LABS: URINE BLOOD 3+ (Negative); URINE CLARITY SL HAZY; URINE COLOR YELLOW; URINE GLUCOSE-RANDOM* NEGATIVE (Negative); URINE KETONES NEGATIVE (Negative); URINE LEUKOCYTES 1+ (Negative); URINE NITRITE NEGATIVE (Negative); URINE PROTEIN (DIPSTICK) 1+ (Negative); URINE SPECIFIC GRAVITY >= 1.030 (1.005-1.035); URINE UROBILINOGEN 0.2 E.U./dl (0.2-1.0)
[2018-10-12 10:40] LABS: ICTOTEST (BILI CONFIRMATORY) Negative (Negative); URINE BILIRUBIN NEGATIVE (Negative)
[2018-10-12 10:42] LABS: URINE CREATININE-RANDOM* 71.9 mg/dL; URINE PROTEIN-RANDOM* 65.4 mg/dL (<11.9)
[2018-10-12 10:47] LABS: BACTERIA 1-9 Few /HPF (None Seen); CASTS None Seen /LPF (None Seen); CRYSTALS None Seen /LPF (None Seen); SQUAMOUS 0-3 Few /LPF (0-3); URINE RBC >20 Many /HPF (0-2); URINE WBC 6-15 Few /HPF (0-5)
[2018-10-12 12:33] LABS: INR 1.8; PROTIME 18.8 Seconds (9.3-11.4)
--- NOTE | 2018-10-12 13:07 | NUR ---
ASSUMED CARE OF PT AT 0645. PLAN FOR PERICARDIALCENTESIS TODAY WITH DR QUEEN. DPOA COMING IN TO SIGN CONSENT. FAMILY AT BEDSIDE. PT TOMY O2 PER NC. SOME CLEARS FOR BREAKFAST, NPO AFTER. LEVO TO KEEP MAP >60.
--- NOTE | 2018-10-12 13:23 | 2DMMODE ---
[facility] [address] [place] [address] 2 D/M-MODE ECHOCARDIOGRAM Name: KATIELOY Kearns Room #: 246-P [facility] IN ..#: [id number] Admission: 10/11/18 Attend Phys: Westley Saucedo, Discharge: Date of : 48 Date of Service: 10/12/18 1323 Report #: [id number] THIS REPORT FOR: //name// APPROVED REPORT Study performed: 10/11/2018 21:12:19 EXAM: Comprehensive 2D, Doppler, and color-flow Echocardiogram Patient Location: ICU Room #: [facility] Status: stat BSA: 2.32 HR: 79 bpm BP: 105/60 mmHg Other Information Study Quality: Good Technically limited study due to body habitus, patient on ventilator. Risk Factors: Cardiac Risk Factors: HTN, Hyperlipidemia, DM Indications Congestive Heart Failure CAD Pericardial Effusion 2D Dimensions IVSd: 14.17 (7-11mm) LVOT Diam: 22.00 (18-24mm) LVDd: 39.31 mm PWd: 13.30 (7-11mm) Ascending Ao: 26.83 (22-36mm) LVDs: 31.58 (25-40mm) Aortic Root: 28.59 mm LV Single Plane 4CH: 52.50 % LV Single Plane 2CH: 50.31 % Biplane EF: 49.4 % Volumes Left Atrial Volume (Systole) Single Plane 4CH: 83.15 mL Single Plane 2CH: 105.60 mL LA ESV Index: 45.00 mL/m2 Aortic Valve [facility] [address] [address] 2 D/M-MODE ECHOCARDIOGRAM Name: ELOY PARIKH Room #: 246-P [facility]#: [id number] Admission: 10/11/18 Attend Phys: Westley Saucedo, Discharge: Date of : 48 Date of Service: 10/12/18 1323 Report #: [id number] AoV Peak James.: 1.58 m/s AO Peak Gr.: 9.95 mmHg LVOT Max P.77 mmHg LVOT Max V: 0.67 m/s DARA Vmax: 1.62 cm2 Pulmonary Valve PV Peak James.: 1.30 m/s PV Peak Gr.: 6.79 mmHg Tricuspid Valve TR Peak James.: 3.21 m/s TR Peak Gr.: 41.12 mmHg Left Ventricle The left ventricle is normal size. There is normal LV segmental wall motion. Mild to moderate concentric left ventricular hypertrophy. Left ventricular systolic function is normal LVEF is 50%. This study is not technically sufficient to allow evaluation of the LV diastolic function. Right Ventricle Right ventricle is dilated. Right ventricle is hypokinetic. Atria Left atrium is moderately dilated. Right atrium is severely dilated. Aortic Valve The Aortic valve is moderately sclerotic. No aortic regurgitation is present. There is no aortic valvular stenosis. Mitral Valve There is mitral annular calcification. There is no mitral valve regurgitation noted. No evidence of mitral valve stenosis. Tricuspid Valve The tricuspid valve is normal in structure. Mild tricuspid regurgitation. estimated pa pressure 50 mm Hg Pulmonic Valve The pulmonary valve is normal in structure. Trace pulmonic regurgitation. Great Vessels The aortic root is normal in size. IVC is not well visualized. [facility] [place] [address] 2 D/M-MODE ECHOCARDIOGRAM Name: ELOY PARIKH Room #: 246-P [facility] IN M.R.#: [id number] Admission: 10/11/18 Attend Phys: Westley Saucedo, Discharge: Date of : 48 Date of Service: 10/12/18 1323 Report #: [id number] Pericardium A large pericardial effusion is present. No echo indications of pericardial tamponade. <Conclusion> Mild to moderate concentric left ventricular hypertrophy. LVEF is 50%. Right ventricle is dilated. Left atrium is moderately dilated. Right atrium is severely dilated. The Aortic valve is moderately sclerotic. Mild tricuspid regurgitation. estimated pa pressure 50 mm Hg A large pericardial effusion is present. No echo indications of pericardial tamponade. <ELECTRONICALLY SIGNED> By: Murali Sesay MD, TREVON 10/12/18 1323 1323 1323 Murali Sesay MD, [facility] /INF
--- NOTE | 2018-10-12 15:13 | EKG ---
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: WG : 1950 Requested By: Jodi Chavez Order Number: [id number] MD: Woody Damon Measurements Intervals [place] Rate: 78 P: CT: QRS: 79 QRSD: 106 T: 38 QT: 375 QTc: 428 Interpretive Statements Atrial fibrillation Low voltage, precordial leads Compared to ECG 09/24/2018 11:16:47 Low QRS voltage now present Ventricular premature complex(es) no longer present Myocardial infarct finding no longer present T-wave abnormality no longer present Electronically Signed On 10-12-2018 15:12:47 [employer] by Woody Damon [email or web address] <ELECTRONICALLY SIGNED> By: Woody Damon MD 10/12/18 151 00 00 Woody Damon MD /EPI
--- NOTE | 2018-10-12 16:17 | 2DMMODE ---
[facility] [address] [place] [address] 2 D/M-MODE ECHOCARDIOGRAM Name: KATIALVERTO Room #: 246-P [facility] IN M.R.#: [id number] Admission: 10/11/18 Attend Phys: Westley Saucedo, Discharge: Date of : 48 Date of Service: 10/12/181616 Report #: [id number] THIS REPORT FOR: //name// APPROVED REPORT Patient Location: [employer] Operator Room #: 2 Stress Nurse: Pericardiocentecis in the cathlab. Pre: Very large pericardial effusion. Post: Trivial pericardial effusion noted Conclusion successful pericardiocentesis with removal of approximately 2000 cc of serosanguinous fluid. Pericardial drain left in place. <ELECTRONICALLY SIGNED> By: Murali Sesay MD, FACC 10/12/181616 16 16 Murali Sesay MD, FACC /INF
[2018-10-12 16:29] LABS: CLARITY TURBID; COLOR ORANGE; SOURCE PERICARDIAL; TOTAL VOLUME 50 mL
--- NOTE | 2018-10-12 16:30 | NUR ---
Assumed care of patient at 1130. Patient resting on bipap, FI02 80% with sats low 90s. Patient drowsy, slow to arouse. Remains NPO for pericardialcentesis. Still on levophed drip at 10 mcg/min and IVF. 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 Had to remain on bipap for duration. Upon arrival back to the room, able to titrate to NRB 15L. Pulled off 1900 during procedure, specimens sent to lab for cultures as ordered. Able to titrate levophed drip down as well, currenlty running at 5 mcg/min. Continue to monitor.
[2018-10-12 16:50] LABS: BF NUCLEATED CELLS 9096; BF RBC 10911
[2018-10-12 17:23] LABS: BF MACROPHAGE 46; BF NEUTROPHILS 12
[2018-10-13] VITALS (46 sets, daily range): BP systolic 81–134; BP diastolic 35–83
[2018-10-13 06:46] LABS: HEMATOCRIT 39.2 % (42.0-52.0); HEMOGLOBIN 12.4 gm/dL (14.0-18.0); MCH 28.1 pg (26.0-34.0); MCHC 31.5 g/dL (28.0-37.0); MCV 89.1 fL (80.0-100.0); RBC 4.4 mil/uL (4.50-6.00); RDW 16.5 % (10.5-14.5); WBC 8.8 thou/uL (4.0-11.0)
[2018-10-13 06:57] LABS: INR 1.3; PROTIME 13.5 Seconds (9.3-11.4)
[2018-10-13 07:02] LABS: ALBUMIN 2.9 g/dL (3.4-5.0); CALCIUM 8.1 mg/dL (8.5-10.1); CREATININE 2.2 mg/dL (0.7-1.3); PHOSPHORUS 5.2 mg/dL (2.5-4.9); POTASSIUM 5.3 mmol/L (3.5-5.1)
--- NOTE | 2018-10-13 09:56 | 2DMMODE ---
[place] [address] [facility] [place] [address] 2 D/M-MODE ECHOCARDIOGRAM Name: ELOY PARIKH Room #: 246-P AD[facility] IN M.R.#: [id number] Admission: 10/11/18 Attend Phys: Westley Saucedo, Discharge: Date of : 48 Date of Service: 10/13/18 0956 Report #: [id number] THIS REPORT FOR: //name// APPROVED REPORT Study performed: 10/13/2018 08:10:08 EXAM: Limited 2D Echocardiogram Patient Location: ICU Room #: 246 Status: on-call BSA: 2.48 HR: 83 bpm BP: 111/60 mmHg Rhythm: Iregular Other Information Study Quality: Adequate Technically limited study due to morbid obesity, no mobility. Indications Pericardial Effusion Pericardial effusion status post centesis on 10/12/2018. Left Ventricle The left ventricle is normal size. There is normal LV segmental wall motion. There is normal left ventricular wall thickness. The left ventricular systolic function is normal. The left ventricular ejection fraction is within the normal range. LVEF is 55-60%. Right Ventricle Right ventricle is mildly dilated. Right ventricle is mildly hypokinetic. Atria Left atrium is mildly dilated. Right atrium is moderately dilated. Aortic Valve The Aortic valve is sclerotic. Mitral Valve The mitral valve is normal in structure. Tricuspid Valve [facility] [address] [place] [address] 2 D/M-MODE ECHOCARDIOGRAM Name: ELOY PARIKH Room #: 246-P [facility] IN M.R.#: [id number] Admission: 10/11/18 Attend Phys: Westley Saucedo, Discharge: Date of : 48 Date of Service: 10/13/1856 Report #: [id number] The tricuspid valve is normal in structure. Pulmonic Valve Pulmonic valve is not well visualized. Great Vessels The aortic root is normal in size. Pericardium Small to moderate pericadial effusion noted. <Conclusion> LVEF is 55-60%. Right ventricle is mildly dilated. Left atrium is mildly dilated. Right atrium is moderately dilated. Small to moderate pericadial effusion noted. <ELECTRONICALLY SIGNED> By: Murali Sesay MD, FACC 10/13/18955 5 5 Murali Sesay MD, FACC /INF
--- NOTE | 2018-10-13 17:14 | NUR ---
DR QUEEN PERFORMED PERICARDIAL CENTHESIS AT BEDSIDE, 225ML SEROSANGUOINOUS FLUID OFF, THEN D/C'D PIGTAIL. BANDAID C/D/I. PT GIVEN HYDROCODONE AFTER PROCEDURE WHICH WAS EFFECTIVE, NO OTHER C/O PAIN SINCE. PT A/O X 4, WITH INTERMITTENT FORGETFULNESS. PT CONT ON 10L HFNC, SATS >92%, SOA WITH EXERTION. PT UP TO CHAIR X 2 ASSIST. GARCÍA CATH D/C'D, PT INCONT OF BLADDER AFTER REMOVAL.
[2018-10-14] VITALS (36 sets, daily range): BP systolic 94–154; BP diastolic 61–108
[2018-10-14 03:09] LABS: BODY FLUID AMYLASE 16 U/L (()); BODY FLUID GLUCOSE 161 mg/dL (()); BODY FLUID LDH 259 IU/L (()); BODY FLUID PROTEIN 5.9 g/dL (())
[2018-10-14 05:26] LABS: HEMATOCRIT 38.9 % (42.0-52.0); HEMOGLOBIN 12.4 gm/dL (14.0-18.0); MCH 28.2 pg (26.0-34.0); MCHC 31.9 g/dL (28.0-37.0); MCV 88.4 fL (80.0-100.0); RBC 4.4 mil/uL (4.50-6.00); RDW 16.3 % (10.5-14.5); WBC 9.7 thou/uL (4.0-11.0)
[2018-10-14 05:35] LABS: CALCIUM 8.4 mg/dL (8.5-10.1); CREATININE 1.6 mg/dL (0.7-1.3); POTASSIUM 5.2 mmol/L (3.5-5.1)
[2018-10-14 05:38] LABS: INR 1.2; PROTIME 12.9 Seconds (9.3-11.4)
[2018-10-14 05:39] LABS: ALBUMIN 2.7 g/dL (3.4-5.0); CALCIUM 8.4 mg/dL (8.5-10.1); CREATININE 1.7 mg/dL (0.7-1.3); PHOSPHORUS 3.2 mg/dL (2.5-4.9); POTASSIUM 5.2 mmol/L (3.5-5.1); URIC ACID* 9.4 mg/dL (2.6-7.2)
[2018-10-14 05:43] LABS: CHOLESTEROL 107 mg/dL (<200); HDL CHOLESTEROL 25 mg/dL (>40); LDL CHOLESTEROL 62 mg/dL (<100); TC:HDL 4.3 Ratio (Not establshd); TRIGLYCERIDE 104 mg/dL (<150); VLDL 21 mg/dL (<40)
[2018-10-14 05:46] LABS: SERUM ASSESSMENT Clear
--- NOTE | 2018-10-14 06:10 | NUR ---
ASSUMED CARE @ 1900 10/13/18, PT ASSESSMENTS AND VSS COMPLETE PER ICU PROTOCOL. PT ALERT AND ORIENTED X 4, ABLE TO FOLLOW COMMANDS, BUT PT STILL HAS SPURTS OF CONFUSION AND FORGETFULNESS. PT HAS HX OF GLAUCOMA, LANTANOPROST ORDERED FOR LEFT EYE. PT DOWN TO 5 L OF 02 NOW SATS IN THE MID 90'S. PT IN A-FIB RHYTHM, THIS IS CHRONIC SITUATION, EDEMA STILL PRESENT, SEE INTERVENTION FOR SPECIFICS. PT COMPLAINED OF COUGH DURING THE SHIFT, CEPACOL LOZENGE ORDERED. GARCÍA IN PLACE, FALL PRECAUTIONS IN PLACE, PLAN OF CARE- CONT TO MONITOR.
[2018-10-14 08:07] LABS: SOURCE PERICARDIAL
[2018-10-14 08:08] LABS: SOURCE PERICARDIAL
--- NOTE | 2018-10-14 13:58 | CATHLAB ---
[facility] [address] [place] [address] INVASIVE PROCEDURE REPORT Name: ELOY PARIKH J Room #: 246-P [facility] IN ..#: [id number] Admission: 10/11/18 Attend Phys: Westley Saucedo, Discharge: Date of : 48 Date of Service: 10/12/18 1530 Report #: [id number] THIS REPORT FOR: //name// CC: FAM unknown Westley Dutta MD TYPE OF PROCEDURE: Subxiphoid pericardiocentesis. DESCRIPTION OF PROCEDURE: The patient was brought to the cardiac catheterization lab in the fasting state. The patient was noted to have a large pericardial effusion. Informed consent was obtained by discussing the indications, alternatives, risks of the pericardiocentesis with the patient and he agreed to proceed. The patient was on BIPAP at the time of the procedure. The subxiphoid area was cleaned with ChloraPrep and sterilely draped in usual fashion. The area was anesthetized with 1% lidocaine. A percutaneous needle was then used and inserted at a 45-degree angle towards the left shoulder. Serosanguineous fluid was obtained. The needle was attached to a transducer and the pressure appeared to be approximately 20 mmHg consistent with pericardial fluid. Fluid was then obtained and sent to the laboratory for CBC, CMP and microbiology to include bacterial Gram stain, culture and sensitivity, and stain for AFB. The transducer was removed and a guidewire was placed through the needle into the pericardial space. The needle withdrawn and a 5-Russian pigtail catheter was then inserted over the wire and the wire removed. The pigtail catheter then attached to a Vacutainer bottle. Approximately 800 mL of serosanguineous fluid was then obtained. The Vacutainer bottle was sent to cytology. The pigtail catheter was left in place. Sterile dressing was applied. The patient tolerated the procedure well. IMPRESSION: Successful removal of 800 mL of serosanguineous fluid from the pericardial space. The procedure was performed with echo guidance. <ELECTRONICALLY SIGNED> By: Murali Sesay MD, [facility] 10/14/18 1358 1530 1242 Murali Sesay MD, FACC /nt
--- NOTE | 2018-10-14 17:28 | NUR ---
OXYGEN TITRATED TO 4L NC. PT CONFUSED AND FORGETFUL AT TIMES TODAY. IV ABX STARTED FOR UTI. ORDERS FOR TRANSFER TO [facility], AWAITING BED ASSIGNMENT. PT WAS INCONTINENT OF BLADDER AT TIMES THIS SHIFT, NEEDS MAX ASSIST WITH URINAL WHEN CONTINENT. PT HAS NOT HAD A BM SINCE ADMISSION, ORDER FOR MIRALAX OBTAINED.
[2018-10-15] VITALS (23 sets, daily range): BP systolic 108–153; BP diastolic 61–88
[2018-10-15 06:06] LABS: HEMATOCRIT 44.5 % (42.0-52.0); HEMOGLOBIN 13.5 gm/dL (14.0-18.0); MCH 27.3 pg (26.0-34.0); MCHC 30.4 g/dL (28.0-37.0); MCV 89.8 fL (80.0-100.0); RBC 4.96 mil/uL (4.50-6.00); RDW 16.7 % (10.5-14.5); WBC 8.6 thou/uL (4.0-11.0)
--- NOTE | 2018-10-15 06:25 | NUR ---
ASSUMED CARE @1900 10/14/18, PT ASSESSMENTS AND VSS COMPLETE PER CC TELE PROTOCOL, PT ALERT AND ORIENTED X4 BUT PT SEEMS CONFUSED INTERMITTENTLY THROUGH OUT THE NIGHT . PT IS RE-ORIENTED EACH TIME OF THESE EPISODES. PT ABLE TO FOLLOW COMMANDS.PT BLIND IN THE RIGHT EYE. PT IN A-FIB RHYTHM, THIS IS CHRONIC, BP STABLE. PT ON 3L OF 02 AT THIS TIME, SATS HAS MAINTAINED ABOVE 90. BS IN THE 200'S, INSULIN GIVEN. PT USED URINAL THROUGH OUT THE SHIFT, THERE WERE NO ACCIDENTS DURING THIS SHIFT. FALL PRECAUTIONS IN PLACE, PT'S FAMILY HERE LAST NIGHT TO VISIT WITH, PLAN OF CARE-CONTINUE TO MONITOR.
[2018-10-15 06:27] LABS: ALBUMIN 2.9 g/dL (3.4-5.0); CALCIUM 8.5 mg/dL (8.5-10.1); CREATININE 1.2 mg/dL (0.7-1.3); PHOSPHORUS 3.1 mg/dL (2.5-4.9); POTASSIUM 5.4 mmol/L (3.5-5.1)
--- NOTE | 2018-10-15 11:06 | NUR ---
Assumed care of patient at 0700. Patient very drowsy, slow to awaken. Somewhat forgetful of surroundings. Seen by cardiology, ok'd for discharge from their standpoint. Renal has signed off. Family at bedside, they hope to speak with case management today regarding post hospital plans and potential needs for home health/nursing etc. Will be seen by PT/OT today as well. Has transfer orders out of ICU, pending available beds. Up to chair x2 max, very weak legs. Incontinent. Continue to monitor.
--- NOTE | 2018-10-15 12:46 | 2DMMODE ---
[address] [address] 2 D/M-MODE ECHOCARDIOGRAM Name: ELOY PARIKH Room #: 246-P ADM IN M.R.#: [id number] Admission: 10/11/18 Attend Phys: Westley Saucedo, Discharge: Date of : 48 Date of Service: 10/15/18 1245 Report #: [id number] THIS REPORT FOR: //name// APPROVED REPORT Study performed: 10/15/2018 08:10:31 EXAM: Limited 2D Echocardiogram Patient Location: ICU Room #: [facility] Status: routine BSA: 2.50 HR: 94 bpm BP: 133/79 mmHg Other Information Study Quality: Adequate Indications Diabetes Atrial Fibrillation Pericardial Effusion Left Ventricle The left ventricle is normal size. There is normal LV segmental wall motion. There is normal left ventricular wall thickness. The left ventricular systolic function is normal. The left ventricular ejection fraction is within the normal range. LVEF is 55-60%. Right Ventricle Right ventricle is dilated. Right ventricle is hypokinetic. Atria Left atrium is dilated. Right atrium is dilated. Aortic Valve Aortic valve is calcified. Mild aortic stenosis. Mitral Valve The mitral valve is normal in structure. Tricuspid Valve The tricuspid valve is normal in structure. Pulmonic Valve [address] [address] 2 D/M-MODE ECHOCARDIOGRAM Name: ELOY PARIKH Room #: 246-P ADM IN M.R.#: [id number] Admission: 10/11/18 Attend Phys: Westley Saucedo, Discharge: Date of : 48 Date of Service: 10/15/18 1245 Report #: [id number] The pulmonary valve is normal in structure. Great Vessels The aortic root is normal in size. Pericardium Moderate circumferential pericardial effusion. <Conclusion> LVEF is 55-60%. Right ventricle is dilated. Left atrium is dilated. Mild aortic stenosis. Moderate circumferential pericardial effusion. <ELECTRONICALLY SIGNED> By: Murali Sesay MD, FACC 10/15/18 1245 1245 44 Murali Sesay MD, FACC /INF
--- NOTE | 2018-10-15 13:39 | NUR ---
CM ASSESSMENT: CASE OPENED FOR DC PLANNING. CLINIAL INFO REVIEWED. PT ADMITTED FROM HOME THRU ER. FOUND BY FAMILY SOA AND CALLED 911. ACUTE ON CHRONIC RESP FAILURE AND ECHO REVEALED PERICARDIAL EFFUSION. 10/13 HAD PERICARDIALCENTESIS WITH 1 LITER REMOVED. MET WITH PT AFTER P.T. EVAL. REQUIRED 2 PERSON MAX ASSIST TO GO FROM CHAIR TO BED. PT WILL REQUIRE POST ACUTE REHAB STAY. PT LIVES IN HOUSE ALONE. HAS HOME O2 AND CPAP FROM [employer] AND STATES HE WEARS 2L O2 CONTINUOUSLY AT HOME. PCP IS NUVIA BRYSON. USES [facility] AT HOME. PT'S DTR JOHN AND SON RODOLFO HERE AND SPOKE WITH THEM. THEY STATE PT'S HOME HAS MOLD AND IS IN NEED OF REPAIRS AND DO NOT THINK PT CAN RETURN TO HIS HOUSE. INFORMED PT OF RECOMMENDATION OF REHAB AT DISCHARGE AND HE ACKNOWLEDGED HE IS NOT AT HIS BASELINE. PROVIDED [facility] SNF LIST TO SON AND DTR AND SKILLED REHAB REFERRAL FAXED BY DC POLYMER ENGINEER TO [facility] [place] AT THEIR REQUEST. ALSO DISCUSSED ASSISTED LIVING OPTION AND PROVIDED [employer] AND ENCOURAGED FAMILY TO START LOOKING INTO LIVING OPTIONS FOR PT. PT WAS DROWSY BUT ORIENTED AND ABLE TO COMMUNICATE HIS UNDERSTANDING OF DC PLANNING. ASSISTED PT WITH CHANGING MEDICAL DPOA AND NEW DOCUMENT IN CHART. DTR JOHN IS AGENT FOR MEDICAL DPOA. CM TO ASSIST WITH COMPLETION OF DC PLAN TO SKILLED REHAB. [facility] IS FIRST CHOICE.
--- NOTE | 2018-10-15 14:11 | NUR ---
ASSUME CARE OF PATIENT FROM SARA LYNCH.
[2018-10-15 14:16] LABS: INR 1.2; PROTIME 12.7 Seconds (9.3-11.4)
--- NOTE | 2018-10-15 14:23 | NUR ---
FAXED REFERRAL TO [facility] SPOKE WITH MARKOS DYSON AND SHE RECEIVED REFERRAL AND CAN ACCEPT PT. AT DISCHARGE. DCP TO FOLLOW,
--- NOTE | 2018-10-15 15:01 | NUR ---
FAXED REFERRAL TO [facility] HC LEFT MSG WITH TORIE BAG HANGER THAT REFERRAL FAXED AND SHE WILL LET THE ADM. DEPT KNOW THEY LEFT EARLY TODAY,. DCP TO F/U ON Monday10/17/18
--- NOTE | 2018-10-15 16:38 | NUR ---
called rehab consult to shiva lomas.
--- NOTE | 2018-10-15 18:58 | NUR ---
BEDSIDE REPORT GIVEN TO NIGHT RN.
[2018-10-16] VITALS (18 sets, daily range): BP systolic 113–136; BP diastolic 61–92
[2018-10-16 06:02] LABS: INR 1.2
--- NOTE | 2018-10-16 07:46 | NUR ---
ASSUMED CARE OF PT AT 1900. PT A&O TO SELF, PLACE. PT CAN BE RESTLESS WHEN HE NEEDS TO VOID. PT C/O 5/10 GENERALIZED PAIN EARLY IN THE NIGHT, NORCO GIVEN X1. PT ON 4L HIGH FLOW NC. PT REFUSED TO WEAR BIPAP OVER NIGHT. O2 SAT DROPPED IN THE MIDDLE OF THE NIGHT, WOKE PT UP AND HAD HIM DEEP BREATH. PT FELL BACK ASLEEP TILL 0500, BUT O2 SAT REMAINED >90%. PT VERY DROWSY THIS AM. STILL A&O TO SELF AND PLACE, AND FOLLOWING COMMANDS. WILL CONTINUE TO MONITOR.
--- NOTE | 2018-10-16 11:17 | NUR ---
REFERRAL RECIEVED FOR ACUTE INPATIENT REHAB EVALUATION. UNFORTUNATELY, WE ARE NOT CONTRACTED WITH THIS PT'S INSURANCE FOR THIS SERVICE. THANK YOU FOR THIS REFERRAL.
--- NOTE | 2018-10-16 17:15 | NUR ---
PATIENT REMAINS A&O X 3-4, PLEASANT AND COOPERATIVE WITH CARES. DENIES PAIN. SOA NOTED WHILE LAYING FLAT, BUT IS RECOVERS QUICKLY. UNEVENTFUL DAY. NO OTHER CONCERNS AT THIS TIME. WILL CONTINUE TO MONITOR AND CARE PER PLAN OF CARE.
--- NOTE | 2018-10-17 00:42 | NUR ---
TRANSFER NOTE:PT UP TO ROOM 430 ON 4E, REPORT WAS GIVEN TO ROCKY LYNCH. NO COMPLICATIONS NOTED DURING TRANSFER.
[2018-10-17 00:45] VITALS: BP 132/86
[2018-10-17 04:25] VITALS: BP 112/60
--- NOTE | 2018-10-17 04:28 | NUR ---
PT TRANSFER FROM ICU. AOX2-3, FORGETFUL. DENIES PAIN. VSS. AFEBRILE. FALL PRECAUTIONS IN PLACE. PT USES CALL LIGHT APPROPIATELY. NO COMPLAINS PRESENTLY, WILL CONTINUE TO MONITOR.
[2018-10-17 06:48] LABS: HEMOGLOBIN 13.6 gm/dL (14.0-18.0); MCH 27.6 pg (26.0-34.0); MCHC 31.5 g/dL (28.0-37.0); MCV 87.7 fL (80.0-100.0); PLATELET COUNT 127 thou/uL (150-400); RBC 4.91 mil/uL (4.50-6.00); RDW 16.3 % (10.5-14.5); WBC 8.8 thou/uL (4.0-11.0)
[2018-10-17 07:15] LABS: CALCIUM 8.9 mg/dL (8.5-10.1); CREATININE 1.2 mg/dL (0.7-1.3); POTASSIUM 4.6 mmol/L (3.5-5.1)
[2018-10-17 08:02] VITALS: BP 140/89
[2018-10-17 08:09] LABS: INR 1.3; PROTIME 13.4 Seconds (9.3-11.4)
[2018-10-17 08:53] LABS: ABSOLUTE NEUTROPHILS 5.7 thou/uL (1.4-8.2); ANISOCYTOSIS 1+; ATYPICAL LYMPHS 2 %; OVALOCYTES 1+
--- NOTE | 2018-10-17 10:46 | NUR ---
FAXED REFERRAL TO [facility] SPOKE WITH EMILIANO IN ADM. AND SHE RECEIVED REFERRAL AND WILL REVIEW. FAXED REFERRAL TO [facility] SPOKE WITH FAROOQ IN ADM,. AND SHE RECEIVED REFERRAL AND WILL REVIEW. THEY DO NOT HAVE A BED TODAY BUT SHOULD HAVE BED AVAILABLE TOMORROW. DCP TO FOLLOW.
--- NOTE | 2018-10-17 13:30 | NUR ---
ASSUMED CARE OF PT AT 0700. ASSESSMENT COMPLETED AND CHARTED. ANSWERS QUESTIONS APPROPRIATELY, BUT SEEMS CONFUSED AT TIMES. FLAT AFFECT NOTED. C/O GENERALIZED ALL OVER PAIN, PAIN MEDS GIVEN ORDERED. C/O TROUBLE BREATHING AND SOA WITH EXERTION, [address] NO OTHER CONCERNS AT THIS TIME.
[2018-10-17 17:02] VITALS: BP 155/76
--- NOTE | 2018-10-17 17:21 | NUR ---
ASSUMED PT CA4RE AT 1330.PT IN BED RESTING WITH O2 ON AT 5LNC.VSS.BLOOD SUGAR AT 1700 WAS 195. INSULIN GIVEN ORDERED WITH DINNER.SON HERE TO VISIT,UPDATES GIVEN. WILL CONTINUE TO MONITOR.
[2018-10-17 19:09] VITALS: BP 150/83
[2018-10-18 04:28] VITALS: BP 156/66
[2018-10-18 05:05] LABS: HEMATOCRIT 41.5 % (42.0-52.0); HEMOGLOBIN 12.9 gm/dL (14.0-18.0); MCV 87.2 fL (80.0-100.0); PLATELET COUNT 126 thou/uL (150-400); RBC 4.76 mil/uL (4.50-6.00); RDW 15.5 % (10.5-14.5); WBC 7.5 thou/uL (4.0-11.0)
[2018-10-18 05:15] LABS: CALCIUM 8.5 mg/dL (8.5-10.1); CREATININE 1.1 mg/dL (0.7-1.3); POTASSIUM 4.4 mmol/L (3.5-5.1)
--- NOTE | 2018-10-18 06:19 | NUR ---
Pt a/o x 4. On O2 2.5L NC. VSS. Sleeing in chair for most time during this shift. Denies pain or any other discomfort. No apparent distress noted. All fall precautions maintained. Will continue to monitor.
[2018-10-18 06:54] LABS: ANISOCYTOSIS 1+; METAMYELOCYTES 1 %
[2018-10-18 06:55] LABS: OVALOCYTES FEW
[2018-10-18 08:03] VITALS: BP 134/82
--- NOTE | 2018-10-18 12:12 | NUR ---
SPOKE WITH PATIENTS SON RODOLFO HE STATED THAT HIS SISTER HAS PATIENT'S 2 WALLETS. RODOLFO STATES THAT PATIENT HAD CELL PHONE ON FOOD TRAY/ OVER BED TRAY ALL THE TIME HE STATES WAS THERE IN ICU THAT IT DID NOT MOVE TO ROOM 430 THIS NURSE ALSO CALLED SECURITY THEY DNT HAVE ,
[2018-10-18] MEDS ORDERED: MIRALAX17 GM PO (15:47)
[2018-10-18] MEDS ORDERED: PREDNISONE 20 M20 MG PO (15:47)
[2018-10-18] MEDS ORDERED: IPRAT-ALBUT 0.5-3 ML INH (15:47)
[2018-10-18] MEDS ORDERED: CEFDINIR300 MG PO (15:47)
[2018-10-18] MEDS ORDERED: NOVOLOG100 UNIT/1 SUBQ (15:47)
[2018-10-18] MEDS ORDERED: ALLOPURINOL 10100 M1 PO (15:47)
[2018-10-18] MEDS ORDERED: PROTONIX 20 MG20 M1 PO (15:47)
[2018-10-18] MEDS ORDERED: XALATAN2.5 ML OPHTHALMIC (15:47)
[2018-10-18 15:54] VITALS: BP 126/75
--- NOTE | 2018-10-18 16:17 | NUR ---
DINORAH IN ADM. AT [facility] RECEIVED AUTH. PT. DISCHARGING TODAY AND SHE SET UP TRANSPORTATION [facility]IA [facility] FOR 1700 TODAY. LEFT MSG WITH SON (GLENN) OF DISCHARGE AND TIME OF TRANSPORT. UNIT NOTIFIED AND CHART COPY PER [place]. RN TO CALL REPORT TO [phone].
[2018-10-18 17:44] VITALS: BP 126/75
--- NOTE | 2018-10-18 17:50 | NUR ---
APPROX 1715 REPORT CALLED TO [facility] SPOKE WITH SARAH GAVE REPORT [facility] HERE AT 1720 TO TRANSPORT PATIENT. ALL BELONGINGS PACKED AND SENT WITH PATIENT. PT W/O PAIN OR RESP DISTRESS AT DISCHARGE .
--- NOTE | 2018-10-19 13:08 | PATH ---
[facility] [address] [place] [address] PATHOLOGY RPT PROCEDURE Name: ELOY PARIKH Room #: 430-P [facility] IN .R.#: [id number] Admission: 10/11/18 Date of : 48 Discharge: 10/18/18 Report #: [id number] Path Case #: [id number] Note [facility] Accession Number: [id number] TESTS RESULT FLAG UNITS REF RANGE LAB Clinician Provided Cytology Information No. of containers..01 Other (Miscellaneous) Source: PERICARDIAL FLUID DIAGNOSIS: 02 PERICARDIAL FLUID NEGATIVE FOR MALIGNANT CELLS. REACTIVE MESOTHELIAL CELLS ARE PRESENT. THIS INTERPRETATION INCLUDES EVALUATION OF A CELL BLOCK. Signed out by: 02 Marlena Garcia MD, Pathologist NPI- [id number] Performed by: Ansley Rockwell, Wildlife Technician ([facility]) Gross description: 01 25 ML, RED, CLOUDY /LCS FLAG LEGEND: L-Low Normal,H-High Normal,LL-Alert Low,HH-Alert High <-Panic Low,>-Panic High,A-Abnormal,AA-Critical Abnormal Performed at: [address] [place] [address] Tanner Becker MD, [address] [address] Marlena Garcia MD, Specimen Comment: A courtesy copy of this report has been sent to Specimen Comment: [phone]. Specimen Comment: Report sent to Specimen Comment: A duplicate report has been generated due to demographic updates. Performed at: [address], [place], [place] [id number] MD Tanner Becker MD Phone: [phone]
== END 2018-10-18 17:15 | DRG 682 ==
LOC: ER 17:48 → 4E 19:29 → EROBS 19:29 → ICU 19:29 → 4E 10-17 00:46
PROVIDERS: Emergency Medicine; Hospitalist; Internal Medicine Cardiovascular Disease; Internal Medicine Nephrology; Physician Assistant; ADMIT Internal Medicine
PROC: 02HV33Z Insertion of Infusion Device into Superior Vena Cava, Percutaneous Approach (ICD-10-PCS; principal; 2018-10-11)
PROC: 5A09357 Assistance with Respiratory Ventilation, Less than 24 Consecutive Hours, Continuous Positive Airway Pressure (ICD-10-PCS; 2018-10-12)
PROC: 5A09357 Assistance with Respiratory Ventilation, Less than 24 Consecutive Hours, Continuous Positive Airway Pressure (ICD-10-PCS; 2018-10-13)
PROC: 0W9D3ZZ Drainage of Pericardial Cavity, Percutaneous Approach (ICD-10-PCS; 2018-10-14)
PROC: 5A09357 Assistance with Respiratory Ventilation, Less than 24 Consecutive Hours, Continuous Positive Airway Pressure (ICD-10-PCS; 2018-10-15)
DX: N17.9 Acute kidney failure, unspecified (principal); J96.21 Acute and chronic respiratory failure with hypoxia; R57.0 Cardiogenic shock; J96.22 Acute and chronic respiratory failure with hypercapnia; G93.1 Anoxic brain damage, not elsewhere classified; E87.2 Acidosis; I31.3 Pericardial effusion (noninflammatory); I13.0 Hypertensive heart and chronic kidney disease with heart failure and stage 1 through stage 4 chronic kidney disease, or unspecified chronic kidney disease; E78.5 Hyperlipidemia, unspecified; J45.909 Unspecified asthma, uncomplicated; H40.9 Unspecified glaucoma; E11.51 Type 2 diabetes mellitus with diabetic peripheral angiopathy without gangrene; I25.10 Atherosclerotic heart disease of native coronary artery without angina pectoris; I48.2 Chronic atrial fibrillation; Z66 Do not resuscitate; E11.22 Type 2 diabetes mellitus with diabetic chronic kidney disease; E66.9 Obesity, unspecified; N18.9 Chronic kidney disease, unspecified; G47.33 Obstructive sleep apnea (adult) (pediatric); I48.91 Unspecified atrial fibrillation; J44.9 Chronic obstructive pulmonary disease, unspecified; I50.9 Heart failure, unspecified; Z95.5 Presence of coronary angioplasty implant and graft; Z87.891 Personal history of nicotine dependence; Z79.82 Long term (current) use of aspirin; Z79.899 Other long term (current) drug therapy; Z68.38 Body mass index [BMI] 38.0-38.9, adult
CPT/HCPCS: 10078; 10783

== ENCOUNTER 2021-04-05 22:30 | Inpatient (IN) | payer MEDICARE ==
[~2021-04-05] VITALS: Ht 175.3 cm; Wt 133.8 kg
[~2021-04-05 22:30] MED LIST changes: +ALLOPURINOL 10100 M1 PO; +CEFDINIR300 MG PO; -COUMADIN 5 MG TA5 M1 PO; +IPRAT-ALBUT 0.5-3 ML INH; +JANTOVEN5 MG PO; +NOVOLOG100 UNIT/1 SUBQ; +PREDNISONE 20 M20 MG PO; +PROTONIX 20 MG20 M1 PO; +XALATAN2.5 ML OPHTHALMIC
[2021-04-05 22:43] VITALS: BP 121/91
[2021-04-05 23:07] LABS: PCO2 50.2 mmHg (35.0-45.0); PO2 148.7 mmHg (80.0-100.0); sO2 98.6 % (92.0-98.0)
[2021-04-05 23:09] LABS: pH 7.279 (7.360-7.450)
[2021-04-05 23:46] LABS: ABSOLUTE NEUTROPHILS 7.4 thou/uL (1.4-8.2); BASOPHILS 0.5 % (0.0-2.0); EOSINOPHILS 3.8 % (0.0-3.0); HEMATOCRIT 36.3 % (42.0-52.0); HEMOGLOBIN 11.8 gm/dL (14.0-18.0); LYMPHOCYTES 9.3 % (24.0-44.0); MCH 29.5 pg (26.0-34.0); MCHC 32.4 g/dL (28.0-37.0); MONOCYTES 7.7 % (1.0-8.0); PLATELET COUNT 174 thou/uL (150-400); POLYS 78.7 % (36.0-66.0); RBC 3.99 mil/uL (4.50-6.00); RDW 14.7 % (10.5-14.5); WBC 9.4 thou/uL (4.0-11.0)
[2021-04-06] VITALS (7 sets, daily range): BP systolic 140–183; BP diastolic 64–82
[2021-04-06 00:12] LABS: ANION GAP 13 mmol/L (7-16); BUN 11 mg/dL (7-18); CHLORIDE 123 mmol/L (98-107); CO2 17 mmol/L (21-32); CREATININE 0.4 mg/dL (0.7-1.3); GLUCOSE 109 mg/dL (74-106); SODIUM 153 mmol/L (136-145); TROPONIN-I <0.06 ng/mL (<0.06)
[2021-04-06 00:18] LABS: POTASSIUM 2.5 mmol/L (3.5-5.1)
[2021-04-06 00:19] LABS: CALCIUM < 5.0 mg/dL (8.5-10.1)
[2021-04-06 02:39] LABS: APTT 41.1 Seconds (24.5-32.8); INR 3.78; PROTIME 38.7 Seconds (10.5-12.1)
[2021-04-06 05:35] LABS: HEMATOCRIT 36.4 % (42.0-52.0); HEMOGLOBIN 11.9 gm/dL (14.0-18.0); MCH 29.4 pg (26.0-34.0); MCHC 32.7 g/dL (28.0-37.0); RBC 4.05 mil/uL (4.50-6.00); RDW 14.9 % (10.5-14.5); WBC 4.6 thou/uL (4.0-11.0)
[2021-04-06 05:47] LABS: ALBUMIN 3.7 g/dL (3.4-5.0); BUN 18 mg/dL (7-18); CHLORIDE 107 mmol/L (98-107); CO2 29 mmol/L (21-32); CREATININE 1.1 mg/dL (0.7-1.3); GLUCOSE 239 mg/dL (74-106); MAGNESIUM 1.5 mg/dL (1.8-2.4); SGOT 15 U/L (15-37); SGPT 28 U/L (16-63); TOTAL BILIRUBIN 0.9 mg/dL (0.2-1.0); TOTAL PROTEIN 6.9 g/dL (6.4-8.2); TROPONIN-I <0.06 ng/mL (<0.06)
[2021-04-06 05:50] LABS: ANION GAP 7 mmol/L (7-16); CALCIUM 8.8 mg/dL (8.5-10.1); POTASSIUM 4.7 mmol/L (3.5-5.1); SODIUM 143 mmol/L (136-145)
--- NOTE | 2021-04-06 07:26 | EKG ---
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: apoorva : 1950 Requested By: Elena Mata Order Number: [id number] MD: Taye Petty Measurements Intervals [place] Rate: 75 P: DC: QRS: 76 QRSD: 112 T: -21 QT: 417 QTc: 466 Interpretive Statements Atrial fibrillation Ventricular premature complex Borderline intraventricular conduction delay Borderline T abnormalities, inferior leads Baseline wander in lead(s) V1,V2 Compared to ECG 10/11/2018 18:01:34 Ventricular premature complex(es) now present T-wave abnormality now present Electronically Signed On 04-06-2021 7:26:11 CDT by Taye Petty [email or web address] <ELECTRONICALLY SIGNED> By: Taye Petty MD, FACC 04/06/21 0726 2309 Taye Petty MD, [facility] /EPI
--- NOTE | 2021-04-06 07:55 | NUR ---
ADMIT PT ADMITTED TO ROOM 352 FROM ED FOR CHF AND COPD EXACERBATION. A/O X4 LUNGS COARSE ON BIPAP SETTINGS NOTED BY RT. IV TO RAC INFUSING POTASSIUM AT 5CC/HR PT COULDNT TOLERATE BURNING, 22G IV START IN LEFT HAND AND IS INFUSING CALCIUM GLUCONATE. GARCÍA IN PLACE 1800 CC'S OUT . TOLERATING BIPAPA AND TAKING SIPS OF WATER WITHOUT DIFFICULTY. ADMISSION QUESTIONNAIRE COMPLETED. QUARTER SIZED LESION NOTED TO RIGHT FOREARM PT STATED IT HAS BEEN THERE A YEAR CLEANSED WITH SALINE XEROFORM AND MEPLILEX APPLIED, PHOTO OBTAINED AND PLACED IN CHART. VSS.TELE INTACT READING AFIB WITH CONTROLLED RATE MED REC COMPLETED IN ED REVIEWED WITH PT AND HE STATED IT WAS CORRECT. HAS APPOINTMENT FOR COVID VACCINE BUT HASN'T BEEN ABLE TO GET THERE HE NO LONGER DRIVES.
--- NOTE | 2021-04-06 09:33 | 2DMMODE ---
[facility] [place] [address] 2 D/M-MODE ECHOCARDIOGRAM Name: ELOY PARIKH Room #: 352-P ADM IN M.R.#: [id number] Admission: 04/06/21 Attend Phys: Preston Lea MD Discharge: Date of : 48 Report #: [id number] THIS REPORT FOR: cc: Dona Parish MD, Cora A. MD Santiago, Patrick MD [facility] ~ APPROVED REPORT Study performed: 04/06/2021 08:30:02 EXAM: Comprehensive 2D, Doppler, and color-flow Echocardiogram Patient Location: Bedside Room #: [facility] Status: routine BSA: 2.39 HR: 63 bpm BP: 183/76 mmHg Rhythm: Atrial Fibrillation Other Information Study Quality: Adequate Technically limited study due to morbid obesity. Indications Dyspnea Chest Pain Hx: CHF, CAD/PCI, COPD, Afib, HTN, HLP, DM. 2D Dimensions RVDd: 41.01 mm IVSd: 13.39 (7-11mm) LVOT Diam: 23.08 (18-24mm) LVDd: 58.72 mm PWd: 11.16 (7-11mm) Ascending Ao: 41.04 (22-36mm) LVDs: 46.52 (25-40mm) Left Atrium: 60.21 (27-40mm) Aortic Root: 37.07 mm Volumes Left Atrial Volume (Systole) Single Plane 4CH: 165.22 mL Single Plane 2CH: 141.15 mL LA ESV Index: 68.00 mL/m2 Aortic Valve [facility] [employer] [address] 2 D/M-MODE ECHOCARDIOGRAM Name: ELOY PARIKH Room #: 352-P [facility] IN M.R.#: [id number] Admission: 04/06/21 Attend Phys: Preston Lea MD Discharge: Date of : 48 Report #: [id number] AoV Peak James.: 1.87 m/s AO Peak Gr.: 14.00 mmHg LVOT Max P.46 mmHg AO Mean Gr.: 6.65 mmHg AO V2 Mean: 1.21 m/s LVOT Max V: 0.93 m/s AO V2 VTI: 39.23 cm DARA Vmax: 2.08 cm2 Mitral Valve MV Decel. Time: 199.59 ms MV E Max James.: 1.14 m/s Pulmonary Valve PV Peak James.: 0.99 m/s PV Peak Gr.: 3.95 mmHg Tricuspid Valve TR Peak James.: 2.13 m/s RAP Estimate: 5.00 mmHg TR Peak Gr.: 18.10 mmHg PA Pressure: 23.00 mmHg Left Ventricle Left ventricle is mildly dilated. There is normal LV segmental wall motion. Mild basal septal hypertrophy is present. Left ventricular systolic function is normal. LVEF is 55%. This study is not technically sufficient to allow evaluation of the LV diastolic function due to atrial fibrillation. Right Ventricle Right ventricle is not well visualized. Atria Severe biatrial enlargement. Aortic Valve Aortic valve is moderately calcified. No aortic regurgitation is present. There is no aortic valvular stenosis. Mitral Valve The mitral valve is normal in structure. Trace mitral regurgitation. Tricuspid Valve The tricuspid valve is normal in structure. Trace tricuspid regurgitation. Estimated PAP is 23mmHg. Pulmonic Valve Pulmonic valve is not well visualized. Trace pulmonic [facility] [address] [place] [address] 2 D/M-MODE ECHOCARDIOGRAM Name: ELOY PARIKH Room #: 352-P [facility] IN M.R.#: [id number] Admission: 04/06/21 Attend Phys: Preston Lea MD Discharge: Date of : 48 Report #: [id number] regurgitation. Great Vessels The aortic root is normal in size. The ascending aorta is mildly dilated. IVC is normal in size and collapses >50% with inspiration. Pericardium Small posterior pericardial effusion. <Conclusion> Technically difficult study Left ventricle mildly dilated with basal hypertrophy Ejection fraction 50-55% Normal right ventricular size/function Severe biatrial enlargement. Color-flow Doppler study was performed of the aortic/mitral/tricuspid/pulmonary valve Severe aortic valve calcification but no obvious stenosis detected, mean gradient 7 mmHg Normal mitral valve structure and function Trace tricuspid valve insufficiency Pulmonary systolic pressure estimated at 23 mmHg Normal aortic root size Ascending aortic mildly dilated Small posterior pericardial effusion, no tamponade physiology <ELECTRONICALLY SIGNED> By: Taye Petty MD, FACC 04/06/21932 2 2 Taye Petty MD, FAC /INF
--- NOTE | 2021-04-06 11:07 | NUR ---
RD consult. Admit with CHF, acute hypoxic respiratory failure. Pt with hx COPD, CHF, DM, and class III extreme obesity, BMI 57.2. Pt reports BG usually in good control but unable to verbalize last A1C level.Initially denied need need for diet education stating "watching Na as close as I can." States does not eat out, does not use seasonings w/added Na, no canned goods, except use of deli meats. Encouraged dietary compliance, offered suggestions. Low nutrition risk, continue carb control, 2g Na diet order.
--- NOTE | 2021-04-06 13:04 | NUR ---
INITIAL ASSESSMENT: SW reviewed chart and spoke with nursing and attending physician. Pt was admitted from home due to hypoxia/CHF exacerbation. Pt is currently on 5L of O2. Pt is on IV lasix. SW met with pt at bedside. Introduced role of SW. Pt is alert/orientated x 4. Pt reports he lives at home alone. Prior to admission, pt was independent with ADLs. Pt has home O2/cpap in place at home through [employer]. Pt is normally on 5L of O2 at home. Pt has used HH in the past, but is unsure name of HH provider. Pt has been to [facility] in the past. Pt's PCP is Dr. Dona Soto. PT/OT ordered to evaluate pt for discharge needs. SW is following to assist as needed with discharge planning.
--- NOTE | 2021-04-06 17:59 | NUR ---
ASSUMED PATIENT CARE AT 0700. A/O X4. OFF BIPAP ON 5L/NC O2 TOLERATED WELL. DEIANS PAIN, UP WITH ASSISTED. NPO AFTER MIDNIGHT TO HAVE NM TEST IN AM. SLOWLY TOWARDS POC GOALS,
[2021-04-07 03:56] LABS: CALCIUM 8.8 mg/dL (8.5-10.1); CREATININE 1.2 mg/dL (0.7-1.3); MAGNESIUM 1.8 mg/dL (1.8-2.4); POTASSIUM 4.2 mmol/L (3.5-5.1)
[2021-04-07 03:57] LABS: INR 3.58; PROTIME 36.7 Seconds (10.5-12.1)
--- NOTE | 2021-04-07 04:39 | NUR ---
encouraged to wear bipap tonight, he struggled with it, and finally rested with it on from 2 - 5 am. he found it difficult to be comfortable. reassusred im that he is doing the right thing by trying. heart rate afib, drop to the 40's during sleep. denies pain. no discharge concerns voiced.
[2021-04-07 04:50] LABS: CHOLESTEROL 133 mg/dL (<200); HDL CHOLESTEROL 29 mg/dL (>40); LDL CHOLESTEROL 85 mg/dL (<100); TC:HDL 4.6 Ratio (Not establshd); TRIGLYCERIDE 95 mg/dL (<150); VLDL 19 mg/dL (<40)
[2021-04-07 04:56] LABS: SERUM ASSESSMENT Clear
[2021-04-07 05:08] VITALS: BP 154/73
[2021-04-07 07:18] VITALS: BP 151/88
[2021-04-07 11:30] VITALS: BP 157/86
--- NOTE | 2021-04-07 13:37 | NUR ---
WOUND CONSULT; THE WOUND TO THE RIGHT FORARM HAS BEEN PRESENT OVER A YEAR PER THE PATIENT. THE WOUND HAS IRREGULAR WOUND MARGINS AND IS CAULIFLOWER-LIKE OR HYPERGRANULATED. THE WOUND ITCHES AND IT CAN BE TENDER PER PATIENT. THERE IS NO ERYTHEMA TO THE PERIWOUND. NO ODOR. THE SKIN LESION IS RAISED ABOUT 1 CM. THERE IS NO DRAINAGE ONLY SLIGHTLY MOIST AND IS PINK. THE PATIENT REPORTS HE IS BEING DISCHARGED TODAY. HE STATES HE HAS A F/U WITH HIS PCP IN A WEEK. RECOMMENDAIONS; -APPLY A SILVER FOAM DRESSING SECURE WITH A TUBIGIP OR KERLIX CHANGE IN 1 WEEK. -KEEP THE APPOINTMENT WITH HIS PCP. DISCUSSED WITH CRIS
--- NOTE | 2021-04-07 13:41 | NUR ---
SW reviewed chart and spoke with nursing and attending physician. Pt had stress test today. Awaiting results at this time. Pt may be ready for discharge home pending results. Pt is currently on 5L of O2. Pt is on IV lasix. SW met with pt at bedside to discuss discharge plan. Pt is aware and agreeable. SW discussed possible HH services. Pt is agreeable, as he lives at home alone. Options provided for HH agencies. No preference voiced. SW confirmed home address and phone number. SW [facility] and notified HH liaison. Pt will need transportation home, as he does not have a ride or portable O2. SW to arrange w/c van with O2 through [employer] when pt is ready for discharge. Final d/c ppwk will need to be faxed. Contact info for HH placed in pt's discharge summary. [facility] is following to assist as needed with discharge planning. [facility]-- [employer] [facility]SP[facility]--
[2021-04-07 13:44] VITALS: BP 157/86
--- NOTE | 2021-04-07 14:00 | NUR ---
WOUND CONSULT; A SMALL AREA TO THE COCCYX WITH A WHITE WOUND BED. APPROX .5 X .5 X 0.1 NO ERYTHEMA OFR S/S OF INFECTION. NO DRAINAGE SEEN. THE PATIENT AMBULATES WELL. RECOMMENDATIONS; -APPLY ZGUARD BID/PRN -ENCOURAGE PATIENT TO TURN. DISCUSSED WITH CRIS
[2021-04-07 14:54] VITALS: BP 146/76
[2021-04-07 23:06] LABS: GLYCOHEMOGLOBIN (HGB A1C) 7.3 % (4.8-5.6)
== END 2021-04-07 17:01 | disposition home health service (06) | DRG 291 ==
LOC: ER 22:30 → SICU 04-06 01:29 → 3W 04-06 01:29
PROVIDERS: Emergency Medicine; Nurse Practitioner; Nurse Practitioner Family; ADMIT Hospitalist; ATTEND Hospitalist
PROC: 5A09357 Assistance with Respiratory Ventilation, Less than 24 Consecutive Hours, Continuous Positive Airway Pressure (ICD-10-PCS; principal; 2021-04-06)
PROC: 5A09357 Assistance with Respiratory Ventilation, Less than 24 Consecutive Hours, Continuous Positive Airway Pressure (ICD-10-PCS; 2021-04-07)
DX: I11.0 Hypertensive heart disease with heart failure (principal); J96.21 Acute and chronic respiratory failure with hypoxia; I50.31 Acute diastolic (congestive) heart failure; I48.21 Permanent atrial fibrillation; Z68.41 Body mass index [BMI] 40.0-44.9, adult; J45.909 Unspecified asthma, uncomplicated; E78.5 Hyperlipidemia, unspecified; E87.6 Hypokalemia; E11.51 Type 2 diabetes mellitus with diabetic peripheral angiopathy without gangrene; G47.33 Obstructive sleep apnea (adult) (pediatric); I25.10 Atherosclerotic heart disease of native coronary artery without angina pectoris; E66.01 Morbid (severe) obesity due to excess calories; E83.51 Hypocalcemia; Z66 Do not resuscitate; R07.89 Other chest pain; I70.0 Atherosclerosis of aorta; J44.9 Chronic obstructive pulmonary disease, unspecified; Z79.01 Long term (current) use of anticoagulants; Z95.5 Presence of coronary angioplasty implant and graft; Z87.891 Personal history of nicotine dependence; Z79.82 Long term (current) use of aspirin; Z79.899 Other long term (current) drug therapy
CPT/HCPCS: 10879